=== PATIENT | female | born 1995 | race Caucasian/White ===

== ENCOUNTER 2024-06-15 06:52 | Inpatient (IN) | payer OTHER, SELFPAY ==
[2024-06-15] VITALS (70 sets, daily range): BP systolic 111–163; BP diastolic 45–97; PULSE 67–115; TEMP 36.3–37.3; O2SAT 82–100; BMI 38.2
--- NOTE | 2024-06-15 07:19 | WPDHPUPDATE1 ---
History and Physical Update Update Date/Time: 06/15/24 07:19 29 yo G1 at 40w3d who presents for elective IOL History and Physical has been reviewed, including an updated exam of the patient. There are NO changes in the patient's condition. Risks, benefits, and alternatives have been discussed and questions answered. Patient agrees to proceed with procedure. A/P: routine admission orders Rh+ GBS neg continuous EFM plan for misoprostol IOL
--- NOTE | 2024-06-15 08:01 | LDADM ---
This patient, Aidee Jacobs, was admitted to Labor/Delivery/Recovery 106 on 06/15/24 at 06:52. Plans for labor, pain management and were discussed with patient. Patient/family oriented to hospital policies and general routines including ID bracelet, bed and alarms, visiting hours, pain management, procedures, bathroom and other care routines, personal items, smoking policy, room service/diet and guest tray routines, security routines, and visiting hours. Patient/Family are encouraged to report perceived risks to care and to ask questions if they do not understand what they are told or what they should do. See OBIX for further documentation.
[2024-06-15 08:12] LABS: Basophils Percent Auto 0.3 % (0.2-1.2); Eosinophils Absolute Auto 0.1 K/mm3 (0-0.3); Eosinophils Percent Auto 0.9 % (0-4.4); Hematocrit 34.4 % (37.0-47.0); Hemoglobin 11.5 g/dL (12.0-15.0); Immature Granulocyte Absolute 0.05 K/mm3 (0.00-0.031); Immature Granulocyte Percent A 0.6 % (0-0.5); Lymphocytes Absolute Auto 1.49 K/mm3 (0.9-3.2); Lymphocytes Percent Auto 16.9 % (18.3-44.2); Mean Corpuscular HGB Conc 33.4 g/dl (32-36); Mean Corpuscular Hemoglobin 30.5 pg (26-34); Mean Corpuscular Volume 91.2 fl (80-100); Mean Platelet Volume 10.4 fl (7.4-10.4); Monocytes Absolute Auto 0.6 K/mm3 (0.1-0.6); Monocytes Percent Auto 6.6 % (2.6-8.5); Neutrophils Absolute Auto 6.6 K/mm3 (1.3-6.7); Neutrophils Percent Auto 74.7 % (45.5-73.1); Platelet Count Result 226 k/mm3 (150-375); Red Blood Count 3.77 M/mm3 (4.2-5.4); Red Cell Distribution Width 13.7 % (11.5-14.5); White Blood Count 8.8 K/mm3 (4.5-10.0)
[2024-06-15] MEDS: miSOPROStol 25 MCG TABLET 50 MCG BUCCAL ×2 (08:25→12:41)
--- NOTE | 2024-06-15 08:50 | PCCCNOTE ---
DEVIN Melissa to provide resource.
[2024-06-15 09:13] LABS: HIV 1/2 Ab P24 Ag Result Negative (Negative)
[2024-06-15 09:55] LABS: Rapid Plasma Reagin Non-Reactive (NonReactive)
[2024-06-15] MEDS: miSOPROStol 25 MCG TABLET VAGINAL (17:22)
[2024-06-15] MEDS: fentaNYL CITRATE INJ (*CRX) 100 MCG/2 ML VIAL 50 MCG IV PUSH ×2 (19:53→22:18)
[2024-06-15] MEDS: LACTATED RINGERS 1,000 ML 125 ML IV CONT ×2 (21:51→22:21)
--- NOTE | 2024-06-15 22:15 | WPDANESEPP ---
Anes - Eval Pre Procedure Procedure: Labor Epidural Date/Time: 06/15/24 22:15 Surgeon: Guillermo Preop Diagnosis: Labor Pain Pre Op Diagnosis: IOL Patient Data Age: 29 Gender: F Height: 1.6 m Weight: 98 kg Last Vital Signs Temp 37.3 C 06/15/24 18:00 Pulse 115 H 06/15/24 22:00 BP 153/73 H 06/15/24 22:00 Pulse Ox 100 06/15/24 22:11 O2 Del Method Room Air 06/15/24 07:58 Allergies Allergy/AdvReac Type Severity Reaction Status Date / Time No Known Allergies Allergy Verified 06/11/24 13:28 Home Medications Medication Instructions Recorded Confirmed Type levothyroxine 75 mcg tablet 75 mcg PO DAILY 05/05/24 06/06/24 History vits no.126-ferrous fum 1 tablet PO DAILY 05/05/24 06/06/24 History 28 mg iron-folic acid 800 mcg tablet (Classic ) sertraline 50 mg tablet 50 mg PO DAILY 05/05/24 06/06/24 History Laboratory Tests 06/15/24 07:18 WBC 8.8 K/mm3 (4.5-10.0) RBC 3.77 L M/mm3 (4.2-5.4) Hgb 11.5 L g/dL (12.0-15.0) Hct 34.4 L % (37.0-47.0) MCV 91.2 fl (80-100) MCH 30.5 pg (26-34) MCHC 33.4 g/dl (32-36) RDW 13.7 % (11.5-14.5) Plt Count 226 k/mm3 (150-375) MPV 10.4 fl (7.4-10.4) Immature Gran % (Auto) 0.6 H % (0-0.5) Neut % (Auto) 74.7 H % (45.5-73.1) Lymph % (Auto) 16.9 L % (18.3-44.2) [place] % (Auto) 6.6 % (2.6-8.5) Eos % (Auto) 0.9 % (0-4.4) Baso % (Auto) 0.3 % (0.2-1.2) Lymph # (Auto) 1.49 K/mm3 (0.9-3.2) [place] # (Auto) 0.6 K/mm3 (0.1-0.6) Eos # (Auto) 0.1 K/mm3 (0-0.3) Baso # (Auto) 0.0 K/mm3 (0.0-0.1) Abs Immat Gran (auto) 0.05 H K/mm3 (0.00-0.031) Absolute Neuts (auto) 6.6 K/mm3 (1.3-6.7) Absolute Nucleated RBC 0.000 K/mm3 (0.0-0.012) Nucleated RBC % 0.0 % (0.0-0.2) RPR Non-reactive (NonReactive) HIV 1&2 Ab/P24 Ag 4thGn Negative (Negative) Blood Type A Positive Antibody Screen Negative : gestational age (, GAETANO 06/17/24) Patient hx anesthesia problems: none Family hx anesthesia problems: none Results Review: All pre-operative results and documents have been reviewed as part of the pre-operative evaluation. [facility] Past Medical History Medical History Allergies Anemia Anxiety IBS (irritable bowel syndrome) Thyroid disease Family History Family History Father Diabetes mellitus Asthma Grandparent Diabetes mellitus Social History Social History Smoking status: Never smoker Alcohol intake: never Substance use: never Substance use type: marijuana Do You Feel Safe in your Home?: Yes Lack of Transportation: No Lack of Food: Never True Current Housing: I Have Housing Concerned About Future Housing: No Difficulty Paying Gas/Electric Bills: No Difficulty Paying for Meds: No Currently Unemployed: No Education: High School Diploma/GED Difficulty w/ Childcare or Family Care: No Living arrangements: with family Occupation/Education: occupation Gender identity (if verbalized by the patient): Female Sexual Orientation (if Verbalized by the Patient): Bisexual Spiritual care concerns: No Exam Day of Procedure 06/15/24 22:15 Patient weight: obese Heart: regular rate and rhythm Lungs: clear to auscultation Airway: Mallampati scale class II Neurological: alert and oriented
[2024-06-16] VITALS (116 sets, daily range): BP systolic 95–159; BP diastolic 40–109; PULSE 65–142; RESP 18–20; TEMP 36.6–37.7; O2SAT 83–100
[2024-06-16] MEDS: OXYTOCIN 30 UNITS/NS 500 ML 30 UNITS/500 ML BAG 6 UNITS IV CONT (00:10)
[2024-06-16] MEDS: LACTATED RINGERS 1,000 ML 125 ML IV CONT (02:33)
--- NOTE | 2024-06-16 05:18 | PM.OBPRVD ---
OB - Vaginal Delivery Note Procedure Delivery date: 06/16/24 Induction method: Per Misoprostol Protocol Delivery augmentation: Pitocin Delivery monitor: External FHT and Internal Uterine Route of delivery: Episiotomy description: None Laceration Description: Vaginal (vilateral) Delivery repair: vicryl Specimen: No Quantitative Blood Loss (ml): 150 Anesthesia type: Epidural Disposition: Floor Complications: No immediate complications Narrative: Patient pushed for a spontaneous vaginal delivery. The fetus was delivered atraumatically and placed on the maternal abdomen. The cord was clamped and cut after 1 minute of life. The cord was double clamped and cut and a segment of cord was collected for cord gases. Cord blood was collected for blood type and Coomb's testing. The placenta delivered spontaneously and was noted to be intact. The perineum was inspected and noted to be intact. There were superficial bilateral vaginal lacerations. The lacerations were made hemostatic with 3-0 vicryl in a running fashion. The uterus was firm and good hemostasis was noted. Baby Date of : 06/16/24 Time of : 04:59 Gestational Age by Date: 40 Infant gender: Female presentation: vertex position: Right Occiput Anterior Placenta delivery description: Spontaneous Cord Vessel Description: 3 Vessels score one minute: 9 score five minutes: 9
[2024-06-16] MEDS: OXYTOCIN 30 UNITS/NS 500 ML 30 UNITS/500 ML BAG 125 UNITS IV CONT (05:35)
[2024-06-16] MEDS: LEVOTHYROXINE SODIUM 75 MCG TABLET PO (06:46)
[2024-06-16] MEDS: WITCH HAZEL 40 PADS 1 PAD TOPICAL (06:47)
[2024-06-16] MEDS: BENZOCAINE 20% AER SPR (*SP) 56 GM CAN 1 SPRAY TOPICAL (06:47)
[2024-06-16] MEDS: IBUPROFEN 600 MG TABLET PO ×3 (06:52→23:59)
[2024-06-16] MEDS: DOCUSATE SODIUM 100 MG CAPSULE PO ×2 (07:14→17:07)
[2024-06-16] MEDS: SERTRALINE HCL 50 MG TABLET PO (07:14)
[2024-06-16] MEDS: MULTIVIT/MIN/PREN/FOL AC/IRON TABLET 1 TAB PO (07:14)
--- NOTE | 2024-06-16 09:59 | OBPPTRN ---
Patient transferred to post room #285 via (wheelchair). Support person present. Oriented to unit, room, information board, rooming in, admission packet and security measures. Patient verbalizes understanding.
--- NOTE | 2024-06-16 10:40 | PC.NURSE ---
0968- To patient room to assist with . Baby is laying in the crib and we unwrapped and changed her diaper to waken her. Mom was already in a semi reclined position so we attempted a laid back feed, but ended up placing baby in football hold. Baby latched and sucked 3 times before stopping and refusing to suck more. We tried to relatch and get baby feeding but were unable. Encouraged mom to take a break and try again soon or when she observes feeding cues. Mom agrees to this plan. Reported to primary RN. 1040- Assisted mother to wake and latch infant to the [left] breast in [football] position. Infant [was] able to maintain an appropriate latch. She would suckle off and on in short bursts. Mother [declines] nipple pain. Encouraged mother to keep infant awake and nursing, but baby became sleepy again quickly. Mother taught to hand express some drops of colostrum and baby eagerly lapped them from the breast and latched, but then would not suck. Reviewed using the blue feeding sheet to record time and duration of feeding. admission folder given. Mother voiced understanding of the education shared, to call for assistance if the infant does not latch or if there is discomfort with . name/number on communication board. Reported to the Primary RN.?
[2024-06-16] MEDS: DIBUCAINE 1% OINTMENT 30 GM TUBE 1 APPLIC TOPICAL (14:24)
--- NOTE | 2024-06-16 17:00 | PC.NURSE ---
Patient received a [employer] insurance pump. Reviewed flange sizing and encouraged mom to let us know if she is going to pump before she goes home so we can assist with set up and use. She has visitors now but will call for assistance as needed. Reported to primary RN.
[2024-06-16] MEDS: ACETAMINOPHEN 325 MG TABLET 650 MG PO (17:06)
[2024-06-17] VITALS: BP 112/64; PULSE 76; RESP 16; TEMP 37.1; O2SAT 95
[2024-06-17 01:39] VITALS: BP 127/69; PULSE 74; TEMP 36.7; O2SAT 99
[2024-06-17 05:44] LABS: Hematocrit 28.7 % (37.0-47.0); Hemoglobin 9.4 g/dL (12.0-15.0)
[2024-06-17] MEDS: LEVOTHYROXINE SODIUM 75 MCG TABLET PO (06:38)
[2024-06-17 08:00] VITALS: BP 134/62; PULSE 75; RESP 16; TEMP 36.6; O2SAT 100
--- NOTE | 2024-06-17 08:00 | PC.NURSE ---
Introductions were made,communication board updated with name and contact information then consulted with patient to assess needs related to . Mother led the conversation with her?plans to feed?her and the?experience so far. Mother intends to primarily pump and feed . Mother states that she is more comfortable with pumping and feeding but will attempt to place to breast at times. Mother denies any further education related to pumping and feeding. Reported to the Primary RN.
[2024-06-17] MEDS: IBUPROFEN 600 MG TABLET PO ×2 (08:06→17:17)
--- NOTE | 2024-06-17 09:19 | P.PNOB_ITS ---
OB - PN: Subj Subjective Date/time seen: 06/17/24 09:19 Patient comments: no complaints, pain well controlled and tolerating diet [place] feeding status: exclusively breast feeding Narrative: patient doing well this AM. No complaints. Pain is well controlled. She reports minimal bleeding. She is ambulating and voiding without difficulty. She is tolerating PO. She denies N/V, fever, chills. OB - PN: Obj Data Labs 06/17/24 04:51 Labs: Laboratory Results - last 24 hr 06/17/24 04:51 Hgb 9.4 L Hct 28.7 L OB - PN A/P Plan day: 1 Plan: routine care Comments: patient doing well H/H VSS will continue iron supplementation continue routine care Time Spent With Patient Time: Total time spent is greater than 50% in coordination of care (as documented) at patient's floor/unit and/or counseling patient: Time with patient: less than 15 minutes Review of Systems Review of Systems: All systems reviewed & are unremarkable except as noted in HPI and below Exam Const: General: comfortable and no acute distress Resp: Effort & Inspection: normal respiratory effort Cardio: Rate: regular rate GI: GI Palp: Yes Soft to palpation and No Tenderness to palpation present (GI) Auscultation: normal bowel sounds Other: fundus firm and below umbilicus. Psych: Affect: normal affect
[2024-06-17] MEDS: SERTRALINE HCL 50 MG TABLET PO (09:21)
[2024-06-17] MEDS: DOCUSATE SODIUM 100 MG CAPSULE PO ×2 (09:21→16:39)
[2024-06-17] MEDS: MULTIVIT/MIN/PREN/FOL AC/IRON TABLET 1 TAB PO (12:27)
[2024-06-17] MEDS: POLYSACCHARIDE IRON COMPLEX 150 MG CAPSULE PO ×2 (12:27→16:39)
--- NOTE | 2024-06-17 15:26 | WPDANLDPN2 ---
Anes-Prog Note L&D Date/Time: 06/17/24 15:26 Comfortable throughout: labor and delivery Neuraxial method: epidural Epidural/Spinal procedure site: clean & non-tender Neuro status: Neuro function grossly intact. Cardiovascular status: normal Respiratory status: normal Airway patency: baseline Mental status: baseline Post-Op hydration status: normal Vital Signs: Last Vital Signs Temp 36.6 C 06/17/24 08:00 Pulse 75 06/17/24 08:00 Resp 16 06/17/24 08:00 BP 134/62 06/17/24 08:00 Pulse Ox 100 06/17/24 08:00 O2 Del Method Room Air 06/17/24 08:30 Pain score (VAS): 0 Post-procedural complaints: none Patient feedback: Patient satisfied with anesthetic care.
[2024-06-17] MEDS: ACETAMINOPHEN 325 MG TABLET 650 MG PO (21:20)
[2024-06-18] VITALS: BP 112/64; PULSE 76; RESP 16; TEMP 37.1; O2SAT 95
[2024-06-18] MEDS: IBUPROFEN 600 MG TABLET PO ×2 (04:28→10:36)
[2024-06-18] MEDS: WITCH HAZEL 40 PADS 1 PAD TOPICAL (04:29)
[2024-06-18] MEDS: TETANUS,DIPHTHERIA,AC PERTUSSIS ADULT (0.5 ML) BOOSTRIX IM (07:56)
[2024-06-18] MEDS: LEVOTHYROXINE SODIUM 75 MCG TABLET PO (07:56)
[2024-06-18 08:00] VITALS: BP 133/84; PULSE 79; RESP 14; TEMP 36.4; O2SAT 99
--- NOTE | 2024-06-18 08:22 | PM.OBDSVD ---
DS: Admitting Diagnosis Discharge Date 06/18/24 Admitting Diagnosis intrauterine at term DS: Discharge Diagnosis Discharge Diagnosis (1) Normal vaginal delivery: Code(s): O80 - Encounter for full-term uncomplicated delivery Status: Acute OB - DS: Summary OB Procedures : None OB Procedures Intrapartum: Spontaneous Vag Delivery OB Procedures: : None Peripartum Data Laceration Description: Vaginal (vilateral) Episiotomy description: None Status at Discharge Functional status at discharge: independent ambulation Overall status at discharge: patient is back to baseline Time Spent with Patient Time attestation: Total time spent providing and/or coordinating discharge services: Time spent: Less than 30 minutes Exam Const: General: comfortable and no acute distress Resp: Effort & Inspection: normal respiratory effort Auscultation: clear to auscultation bilaterally Cardio: Rate: regular rate GI: GI Palp: Yes Soft to palpation Auscultation: normal bowel sounds Other: Fundus firm below umbilicus Psych: Appearance: grossly normal Mental Status: mental status grossly normal Affect: normal affect Discharge Plan Discharge Discharging Clinician: Dario Li Patient Disposition: Home, Self-Care Activity: as tolerated and pelvic rest Diet: regular Patient Instructions: Antibiotic Form, Vaginal Delivery (DC) Stand Alone Forms: General Discharge Information Follow-up/Referrals: Dario Li MD [Physician] - 4 Weeks Discharge Medications: New ibuprofen 600 mg tablet 600 mg PO Q6H PRN (Reason: pain) Qty: 30 0RF acetaminophen 500 mg tablet 500 mg PO Q6H PRN (Reason: pain) Qty: 30 0RF ferrous sulfate 325 mg (65 mg iron) tablet 325 mg PO DAILY Qty: 30 0RF Continued levothyroxine 75 mcg tablet 75 mcg PO DAILY sertraline 50 mg tablet 50 mg PO DAILY Classic 28 mg iron- 800 mcg tablet 1 tablet PO DAILY Date of admission: 06/15/24 06:52 Primary Care Provider: UNKNOWN,DOCTOR Admitting Provider: Dario Li Attending physician on admission: Dario Li Condition: Stable
[2024-06-18] MEDS: SERTRALINE HCL 50 MG TABLET PO (08:44)
[2024-06-18] MEDS: POLYSACCHARIDE IRON COMPLEX 150 MG CAPSULE PO (08:44)
[2024-06-18] MEDS: MEASLES,MUMPS,RUBELLA VACCINE 0.5 ML VIAL SUB-Q (08:45)
[2024-06-18] MEDS: DOCUSATE SODIUM 100 MG CAPSULE PO (08:45)
[2024-06-18] MEDS: MULTIVIT/MIN/PREN/FOL AC/IRON TABLET 1 TAB PO (08:45)
--- NOTE | 2024-06-18 09:00 | PC.NURSE ---
Met with patient to assess and discuss needs related to infant feeding. Mother states it is her intention to [mostly pump and bottle feed]. Encouraged mother to be consistent with pumping, even if she isn't getting large volumes. Educated on milk production and normal expectations. Mother is supplementing with formula at most feedings. She states that baby was struggling to latch and she didn't feel like she was 'getting anything' at the breast. Parents had just completed a feeding of 30ml of formula. Discussed signs that is effectively feeding, i.e. sufficient voids and stools, jaundice within normal limits, <10% weight loss from . Mother educated on milk production, supply and demand, and expectations for in the immediate period. Mother instructed to call for assistance if will not feed every 3 hours, if there is discomfort with , or if mother has any other questions or concerns. resources provided including the Mom and Baby Guide and name/number on communication board. Mother verbalized understanding. Updated patient?s primary RN with education provided.??
--- NOTE | 2024-06-18 10:15 | PC.NURSE ---
On 06/18/24, the student, Mimi Zayas, provided care and completed [facility] documentation on this patient. I have reviewed the student's documentation and agree with the findings.
--- NOTE | 2024-06-18 10:40 | PC.NURSE ---
Patient viewed the discharge video Mother & Baby Care, The First Two Weeks . Patient was given the opportunity and encouraged to ask questions. Patient verbalized understanding of information shared and has been given the mother/baby guide for home reference.
--- NOTE | 2024-06-18 12:45 | PC.NURSE ---
Mother is feeding appropriately for growth of and understands stimulating infant to eat if needed, offering the breast sometimes, and bottle feeding pumped milk and formula. has had appropriate feedings in the last 24 hours meets the outcomes for weight, output, blood sugar and jaundice at this time. Reinforced understanding of milk production, transition of milk, signs of adequate intake, transition of stool, prevention/relief of engorgement, plugged ducts, mastitis, responsive watching for feeding cues, the different methods of stimulating infant to breastfeed 1-3 hours after the start of the last feeding, community resources, and when to call a provider using the resource of the feeding sheet along with the mom and baby guide. Mother voiced understanding of the information shared, is confident to continue effectively her at home, when to call for assistance, denies any additional assistance or education at this time. Reported to the Primary RN.
[2024-06-19 10:37] VITALS: BP 140/80; PULSE 86; RESP 16; TEMP 36.5; O2SAT 99
== END 2024-06-18 17:20 | disposition home or self-care (01) | DRG 807 ==
LOC: ANHLDR 06:55 → ANHOB2 06-16 08:29
PROVIDERS: Admitting Provider Student in an Organized Health Care Education/Training Program; Visit Provider Student in an Organized Health Care Education/Training Program
DX: O71.4 Obstetric high vaginal laceration alone (principal); Z37.0 Single live birth; Z3A.40 40 weeks gestation of pregnancy
CPT/HCPCS: 36415; 85014; 85018; 85025; 86592; 86703; 86850; 86900; 86901; 90710; 90715; A9270; G0432; J2590; J2795; J3010; J7120

== ENCOUNTER 2024-10-30 08:37 | Outpatient (CLI) | payer BC, SELFPAY ==
--- OUTSIDE RECORDS SUMMARY | 2024-10-30 08:52 | XMS_ITS | Clinical Summary ---
Author Organization [facility] Address [address] [place] [address] Care Team Providers Care Electrician Elevator Maintenance Name Role Phone Tino Herzog MD Primary Care Provider [phone] Clara Rios SENIOR INVESTMENT ANALYST-PEOPLESOFT CONSULTANT Unavailable [phone] Carmen Medina SENIOR INVESTMENT ANALYST-PEOPLESOFT CONSULTANT Unavailable [phone] Source Comments [facility],non-owned Affiliates and Associated Physician Practices is amultiple site organization consisting of ambulatory clinics and hospital sitesin [place], [place], [place] and [place]. This disclosure is being madepursuant to the Care Everywhere program and may not contain all information available regarding this patient. Last updated 18.[facility] Allergies No known active allergies Medications * Be aware that medications may not be up to date on this document. Alwaysverify current medications with the patient. mupirocin (Bactroban) 2 % ointment Apply to affected area 3 times daily 22 g 05/02/2023 Active Vit-Fe Fumarate-FA (SM Vitamins) 28-0.8 MG TABS Take 1 tablet by mouth once daily 90 tablet 3 10/12/2023 Active Active Problems Problem Noted Date Diagnosed Date Gastroesophageal reflux dise ase with esophagitis without hemorrhage 06/20/2023 Resolved Problems Problem Noted Date Diagnosed Date Resolved Date Cellulitis and abscess of leg 01/15/2011 10/09/2012 MRSA (methicillin resistant Staphylococcus aureus) infection 01/15/2011 05/12/2013 Overview (01/17/2011): abscess Disorder of refraction and accommodation 01/14/2010 05/12/2013 Overview (04/15/2015): Speech articulation disorder 01/14/2010 05/12/2013 Immunizations Immunization Administration Dates Next Due DTaP VACCINE IM (6wk-6yrs) 11/02/1997,,1996,07/29 HEP A PEDS 2 DOSE 03/25/2010 HEP B VACCINE, PED/ADOL 11/02/1997,02/03,1996,04/03 HIB BOOSTER 11/02/1997, 7,1996,07/29 Human Papilloma Virus Dagmar valent Vaccine 10/09/2012,03/25/2010 MENINGOCOCCAL ACWY (MCV4P) VAC IM 03/25/2010 MMR 11/02/1997 POLIO IPV 1996,1996,1996 TDAP (7yrs+) 03/25/2010 VARICELLA 11/02/1997 Family History Medical History Relation Name Comments Asthma Father Diabetes Father Hypertension Father Migraine Father Rashes/Skin Problems Father Hypertension Paternal Aunt Seizures Paternal Aunt Cancer Paternal Grandfather Diabetes Paternal Grandfather Heart Failure Paternal Grandfather Hypertension Paternal Grandfather Migraine Paternal Grandfather Cancer Paternal Grandmother Diabetes Paternal Grandmother Hypertension Paternal Grandmother Migraine Paternal Grandmother Hypertension Paternal Uncle Asthma Sister Relation Name Status Comments Father Paternal Aunt Paternal Grandfather Paternal Grandmother Paternal Uncle Sister Social History Tobacco Use Types Packs/Day Years Used Date Smoking Tobacco: Never Smokeless Tobacco: Never Alcohol Use Standard Drinks/Week Comments No 0 (1 standard drink = 0.6 oz pur e alcohol) PHQ-2 Answer Date Recorded Patient Health Questionnaire-2 Score 1 10/12/2023 Comments No Sex and Gender Information Value Date Recorded Sex Assigned at Female 05/01/2023 6:03 PM CDT Legal Sex Female 8:57 AM PHARMACY RESOURCE TECH Gender Identity Female 05/01/2023 6:03 PM CDT Sexual Orientation Not on file Last Filed Vital Signs Vital Sign Reading Time Taken Comments Blood Pressure 98/70 10/12/2023 11:06 AM CDT Pulse 100 10/12/2023 11:06 AM CDT Temperature 36.8 C (98.2 F) 10/12/2023 11:06 AM CDT Respiratory Rate 18 10/12/2023 11:06 AM CDT Oxygen Saturation 100% 10/12/2023 11:06 AM CDT Inhaled Oxygen Concentration - - Weight 83 kg (183 lb) 10/12/2023 11:06 AM CDT Height 160 cm (5' 3 ) 10/12/2023 11:06 AM CDT Body Mass Index 32.42 10/12/2023 11:06 AM CDT Plan of Treatment Health Maintenance Due Date Last Done Comments PAP SMEAR 1996 HIV SCREENING 2011 HEPATITIS C SCREENING 03/29/2014 DTAP/TDAP/TD VACCINES (6 - Td or Tdap) 03/25/2020 03/25/2010, 11/02/1997, 1996, Additional history exists COVID-19 VACCINE ( season) 2024 06/22/2021, 05/25/2021 DEPRESSION SCREENING 07/16/2024 10/12/2023, 04/20/20 23 INFLUENZA VACCINE (Season Ended) 2025 05/04/2021 ZOSTER VACCINE (1 of 2) 2046 HEPATITIS B VACCINE Completed 11/02/1997, 02/03/1997, 1996, Additional history exists HIB VACCINE Completed 11/02/1997, 11/13, 1996, Additional history exists MENINGOCOCCAL GROUPS A/C/Y/W VACCINE Aged Out 03/25/2010 No longer eligible based on patient's age to complete this topic HPV VACCINE Completed 10/09/2012, 03/25/2010 MENINGOCOCCAL (Group B) VACCINE SHARED DECISION-MAKING Aged Out No longer eligible based on patient's age to complete this topic PNEUMOCOCCAL VACCINE Aged Out No long er eligible based on patient's age to complete this topic Additional Health Concerns Infection Onset Date Last Indicated MRSA 01/17/2011 01/17/2011 Insurance [facility] [place] * Guarantor: MIKI YOUNGBLOOD L Account Type Relation to Patient Date of Phone Billing Address Personal/Family 1995 [address] [place] [place] [address] Care Teams Electrician Elevator Maintenance Relationship Specialty Start Date End Date Tino Herzog MD PCP - General Family Medicine 04/20/23 Clara Rios, SENIOR INVESTMENT ANALYST-PEOPLESOFT CONSULTANT [address] [place] [address] [place] [id number] Nurse Practitioner Nurse Practitioner 04/20/23 Carmen Medina APRN-PEOPLESOFT CONSULTANT [address] [place] [address] [place] [phone] Nurse Practitioner Family Medicine 06/20/23
[2024-10-30 09:41] LABS: Beta HCG Quantitative 377.62 mIU/ML
== END 2024-10-30 08:38 | disposition home or self-care (01) ==
LOC: ANHLAB 08:38
PROVIDERS: PCP Student in an Organized Health Care Education/Training Program; Visit Provider Student in an Organized Health Care Education/Training Program
DX: N94.89 Other specified conditions associated with female genital organs and menstrual cycle (principal); E03.9 Hypothyroidism, unspecified
CPT/HCPCS: 36415; 84443; 84702

== ENCOUNTER 2024-11-01 09:03 | Outpatient (CLI) | payer BC, SELFPAY ==
--- OUTSIDE RECORDS SUMMARY | 2024-11-01 09:05 | XMS_ITS ---
Author Organization Unknown Plan of Treatment Patient Care team information Name Category Status Period Participants - - Proposed period not known -
--- OUTSIDE RECORDS SUMMARY | 2024-11-01 09:05 | XMS_ITS | Data Portability ---
Author Organization [employer] , [facility] Address [address] [place] [address] Assessment No assessment recorded. Plan of Treatment Reminders Order Date Submit Date Provider Last Modified By Organization Details Last Modified Time Details Appointments None recorded. Lab abo group + rh type, blood 2023 [facility], [address] [place], [address], 4 18:44:40 glucose tolerance test, post-50G, 1-hour 2023 024 [employer], [address] [place], [address], 4 10:59:57 CBC w/ auto diff 2023 024 [employer], [address] [place], [address], 4 11:00:30 obstetric screen, serum or blood 2023 024 [employer], [address] [place], [address], 4 11:31:28 TSH, serum or plasma 2023 024 [employer] [facility], [address] [place], [address], 4 13:35:09 Referral None recorded. Procedures None recorded. Surgeries None recorded. Imaging US, obstetric, follow-up 2023 024 [email or web address] Not available 17:23:53 US, breast, unilateral - pt is , is having pain. 2023 [email or web address] [facility], [address] [facility], [address], [address], 15:40:11 US, obstetric, follow-up 2023 024 PIERCE Not available 17:40:35 US, obstetric, limited 2023 024 [email or web address] Not available 17:13:53 Medication Orders None recorded. Patient TargetsNo targets recorded. Patient Instructions Encounter Date Encounter Id Patient Instructions Last Modified By Organization Details Last Modified Time 03/28/2024 [id number] learning about screening for gestational diabetes [email or web address] Not available 03/28/2024 12:43:41 Reason for Referral None Reported. Results Created Date Observation Date Name Description Value Unit Range Abnormal Flag Note LastModifiedBy Organization Detail LastModifiedTime 03/01/2003/01/2024 TSH W/REF STEPHANIE TO FT4 TSH w/reflex to FT4 1.23 mIU/L normal Refer ence Range > or = 20 Years 0.40- 4.50 Pregn ry Range s First trime ster 0.26- 2.66 Secon d trime ster 0.55- 2.73 Third trime ster 0.43- 2.91 NO COLLE CTION DATE RECEI VIGNESH. WE HAVE USED THE DATE THE SPECI MEN WAS RECEI VIGNESH BY THIS LABOR ATORY THE COLLE CTION DATE. IF THIS IS INCOR RECT, PLEAS E CONTA CT CLIEN T SERVI STEVIE. PHONE NUMBE R: [phone] Not Available [employer] [facility] [address], [place], [address], 03/01/2024 13:35:09 03/31/20 24 04/01/2024 (50G) 1HR - GLUCO SE MARLON ANCE TEST, GESTA DRAGAN PEREZ N glucose (50g) 1 hour 103 mg/dL <135 normal Not Available [employer] [address], [address], 04/01/2024 10:59:57 03/31/20 24 04/01/2024 CBC (INCL UDES DIFF/ PLT) WBC 9.3 thous and/u L 4.0 - 9.8 normal Not Available [address], [address], 04/01/2024 11:00:29 03/31/20 24 04/01/2024 CBC (INCL UDES DIFF/ PLT) RBC 3.7 mary on/uL 3.9 - 4.9 low Not Available [address], [address], 04/01/2024 11:00:29 03/31/20 24 04/01/2024 CBC (INCL UDES DIFF/ PLT) hemoglobin 11.2 g/dL 11.8 - 14.8 low Not Available [address], [address], 04/01/2024 11:00:29 03/31/20 24 04/01/2024 CBC (INCL UDES DIFF/ PLT) hematocrit 33.7 % 35.5 - 44.0 low Not Available [address], [address], 04/01/2024 11:00:29 03/31/20 24 04/01/2024 CBC (INCL UDES DIFF/ PLT) MCV 90.6 fL 82.0 - 99.0 normal Not Available [address], [address], 04/01/2024 11:00:29 03/31/20 24 04/01/2024 CBC (INCL UDES DIFF/ PLT) MCH 30.1 pg 27.2 - 32.6 normal Not Available [address], [address], 04/01/2024 11:00:29 03/31/20 24 04/01/2024 CBC (INCL UDES DIFF/ PLT) MCHC 33.2 g/dL 31.5 - 35.5 normal Not Available [address], [address], 04/01/2024 11:00:03/31/20 24 04/01/2024 CBC (INCL UDES DIFF/ PLT) RDW-CV 12.9 % 11.5 - 14.5 normal Not Available [address], [address], 04/01/2024 11:00:29 03/31/20 24 04/01/2024 CBC (INCL UDES DIFF/ PLT) platelet 258 thous and/u L 140 - 350 normal Not Available [address], [address], 04/01/2024 11:00:29 03/31/20 24 04/01/2024 CBC (INCL UDES DIFF/ PLT) MPV 10.2 fL 9.3 - 12.4 normal Not Available [address], [address], 04/01/2024 11:00:29 03/31/20 24 04/01/2024 CBC (INCL UDES DIFF/ PLT) absolute neutrophil 7.02 thous and/u L 1.90 - 7.00 high Not Available [address], [address], 04/01/2024 11:00:29 03/31/20 24 04/01/2024 CBC (INCL UDES DIFF/ PLT) absolute lymphocyte 1.43 thous and/u L 0.70 - 4.50 normal Not Available [address], [address], 04/01/2024 11:00:29 03/31/20 24 04/01/2024 CBC (INCL UDES DIFF/ PLT) absolute monocyte 0.53 thous and/u L 0.10 - 1.30 normal Not Available [address], [address], 04/01/2024 11:00:29 03/31/20 24 04/01/2024 CBC (INCL UDES DIFF/ PLT) absolute eosinophil 0.22 thous and/u L <0.70 normal Not Available [address], [address], 04/01/2024 11:00:29 03/31/20 24 04/01/2024 CBC (INCL UDES DIFF/ PLT) absolute basophil 0.04 thous and/u L <0.20 normal Not Available [address], [address], 04/01/2024 11:00:29 03/31/20 24 04/01/2024 CBC (INCL UDES DIFF/ PLT) absolute immature granulocyte 0.06 thous and/u L <0.03 high Not Available [address], [address], 04/01/2024 11:00:29 03/31/20 24 04/01/2024 OB 28W (SYPH HIV 1/2 Ag/Ab Non-Re active non-re active normal Not Available [address], [address], 04/01/2024 11:31:28 03/31/20 24 04/01/2024 OB 28W (SYPH syphilis Ab Non-Re active non-re active normal Not Available [address], [address], 04/01/2024 11:31:28 03/01/20 24 02/29/2024 , sendy kerr w-up No observ ation record ed. [email or web address] [address], [place], [address], 03/03/2024 09:46:52 04/25/20 24 04/25/2024 US, obste tric, follo w-up No observ ation record ed. [email or web address] [address], [place], [address], 04/25/2024 11:41:39 Result Notes None recorded. Problems Name Problem SNOMED Code Status Onset Date Resolution Date Notes Provider Name and Address Organization Details Recorded Time 82489711 Active 2023 Swapna Null null, [place] - [facility] 4 23:12:03 Rubella non-immune 935845245 Active MICHELLE MATOS, DO [address] [place] [address], [address], [facility] - [facility] 4 18:54:05 Measles non-immune 103102687 Active MICHELLE MATOS, DO [address] [place] [address], [address], [facility] - [facility] 4 18:54:13 Attention deficit hyperactiv ity disorder 676448230 Active MICHELLE MATOS, DO [address] [place] [address], [address], [facility] - [facility] 4 18:54:23 Depressive disorder 24425877 Active no meds, counselor MICHELLE MATOS, DO [address] [place] [address], [address], [facility] - [facility] 4 18:54:58 Hypothyroi dism 47646979 Active TSH (01/03): 2.73, check again at 28w MICHELLE MATOS, DO [address] [place] [address], [address], [facility] - [facility] 4 18:55:48 Problem Notes None recorded. Procedures Surgical History Date Name Laterality Status Provider Name and Address Organization Details Recorded Time 07/16/2020 Date of Last Pap Smear completed Emma Ahuja [place] - [facility] 12/07/2023 09:48:57 Imaging Results Imaging Date Name Status LastModified by Organiz ation Details LastModified Time 02/29/2024 US, obstetric, follow-up completed louis [address], [place], [address], 03/03/2024 09:46:52 04/25/2024 US, obstetric, follow-up completed [email or web address] [address], [place], [address], 04/25/2024 11:41:39 Procedure Notes None recorded. Medical Equipment None Reported. Allergies Allergen ID Allergen Name Allergen Category Reaction Reaction Severity Criticality Documentation Date Start Date Code Code System Note Provider Name and Address Organization Details Recorded Time 613278 house dust allergeni c extract environme nt,medica tion Not available Not available Not available 10/22/2023 48203 9 RxNorm Not Available Not Available Not Available 519898 cow milk allergeni c extract food,medi cation Not available Not available Not available 10/22/2023 32857 5 RxNorm Not Available Not Available Not Available Medications Name Sig Start Date Stop Date Status Note LastModified by Organization Details LastModified Time levothyroxine 75 mcg tablet TAKE 1 TABLET BY MOUTH EVERY DAY 04/11 completed Not Available Not Available Not Available levothyroxine 50 mcg tablet TAKE 1 TABLET BY MOUTH ONCE DAILY 02/28 completed Not Available Not Available Not Available pantoprazole 40 mg tablet,delaye d release TAKE 1 TABLET BY MOUTH ONCE DAILY 10/21 completed Not Available Not Available Not Available mupirocin 2 % topical ointment 10/21 completed Not Available Not Available Not Available sertraline 50 mg tablet Take 1 tablet by mouth once daily active Not Available Not Available No t Available Augmentin 500 mg-125 mg tablet Take 1 tablet 3 times a day by oral route for 7 days. 11/08 completed Not Available Not Available Not Available Vitamin D active Not Available Not Tg ilable Not Available 28 mg iron-800 mcg tablet TAKE 1 TABLET BY MOUTH ONCE DAILY active Not Available Not Available No t Available Vitals Date Recorded Body height Provider Name an d Address Organization Details Last Updated DateTime 02/29/2024 160.02 cm Malu Culpa [facility] 02/29/2024 14:31:37 Date Recorded Body mass index (BMI) Body weight Systolic blood pressure Diastolic blood pressure Provider Name and Address Organization Details Last Updated DateTime 02/29/2024 34.6 kg/m2 67118.23 g 120 mm[Hg] 74 mm[Hg] Ayala Rivers [facility] 02/29/2024 15:26:15 Date Recorded Body height Body mass index (BMI) Body weight Body temperature Systolic blood pressure Diastolic blood pressure Provider Name and Address Organization Details Last Updated DateTime 160.02 cm 35.6 kg/m2 78709.3 5 g 98.3 [degF] 118 mm[Hg] 68 mm[Hg] Cathleen Gifford [facility] 11:31:51 Date Recorded Body weight Body mass index (BMI) Body height Systolic blood pressure Diastolic blood pressure Provider Name and Address Organization Details Last Updated DateTime 04/11/2024 54117.8 4348 g 36.1 kg/m2 160.02 cm 124 mm[Hg] 80 mm[Hg] Kristina Chan [facility] 16:46:02 Date Recorded Body height Body mass index (BMI) Systolic blood pressure Diastolic blood pressure Provider Name and Address Organization Details Last Updated DateTime 04/18/2024 160.02 cm 36 kg/m2 112 mm[Hg] 72 mm[Hg] Shauna Peguero [facility] 04/18/2024 15:38:36 Date Recorded Body weight Provider Name an d Address Organization Details Last Updated DateTime 04/18/2024 20911.45470 g Xena Sarah MD [address] [facility], [place], [address], [facility] 04/18/2024 16:05:36 Date Recorded Body height Body mass index (BMI) Body weight Systolic blood pressure Diastolic blood pressure Provider Name and Address Organization Details Last Updated DateTime 04/25/2024 160.02 cm 36.4 kg/m2 05982.87 g 110 mm[Hg] 50 mm[Hg] Emery George [facility] 11:21:01 Social History Question Answer Notes LastModified by Organizat ion Details LastModified Time Tobacco Smoking Status Never Smoker Ayala luna[place] [facility] 10/22/2023 17:01:54 Are You Blind Or Do You Have Difficulty Seeing? Yes Information not available 10/22/2023 Are You Currently Employed? Yes Information not available 10/22/2023 Are You Deaf Or Do You Have Serious Difficulty Hearing? Yes Information not available 10/22/2023 What Type Of Diet Are You Following? REGULAR Information not available 10/22/2023 Which Illicit Or Recreational Drugs Have You Used? CBD And THC Before Information not available 10/22/2023 How Many Children Do You Have? 0 Information not available 10/22/2023 Are There Any Occupational Health Risks Where You Work? Yes Information not available 10/22/2023 What Is Your Relationship Status? Single Information not available 12/07/2023 Are You Sexually Active? Yes Information not available 10/22/2023 What Types Of Sporting Activities Do You Participate In? Walks, Small Hikes In Warmer Weather, Swimming In Warm Weather. Information not available 10/22/2023 Do You Use Any Illicit Or Recreational Drugs? Yes Information not available 10/22/2023 Have You Used IV Drugs? No [email or web address] Information not available 04/11/2024 Do You Or Have You Ever Used Any Other Forms Of Tobacco Or Nicotine? No Information not available 12/07/2023 Sex: Female Functional Status Question Answer Note LastModified by Organizat ion Details LastModified Time What is your exercise level? Occasional Information not available 10/22/2023 Mental Status None recorded. Family History Relationship Description Onset Age of this Age Resolved Age Notes LastModified by Organization Details LastModified Time Unspecified Relation Irritable bowel syndrome [email or web address] Not available 2023 17:01:53 Unspecified Relation Hypercholest erolemia [email or web address] Not available 2023 17:01:53 Unspecified Relation Diabetes mellitus [email or web address] Not available 2023 17:01:53 Paternal Grandfather Malignant neoplastic disease [email or web address] Not available 2023 17:01:53 Father Hypercholest erolemia kbritsch Not available 2023 17:01:53 Father Diabetes mellitus [email or web address] Not available 2023 17:01:53 Medical History Condition Response ADD/ADHD Y Eating Disorder Y IBS (Irritable Bowel Syndrome) Y Depression Y Hypothyroidism Y Seasonal allergies Y Gynecological History Statement/Question Response Flow Moderate Date of LMP 09/05/2023 HPV Vaccine N Duration of Flow (days) 4 to 5 Most Recent Mammogram Current Control Method Age at Menarche 12 Date of Last Colonoscopy Most Recent Bone Density Frequency of Cycle (Q days) N/A Date of Last Pap Smear 07/16/2020 Obstetrics History GPAL:G 1 P 0 0 0 0 Past Encounters Encounter ID Performer Location Encounter Start Date Encounter Closed Date Diagnosis/Indication Diagnosis SNOMED-CT Code Diagnosis ICD10 Code Diagnosis Note [id number] Leanna Fowler, ANJU, CNM [facility] [place] [address] 10/22/2023 16:40:33 10/23/2023 09:23:18 test positive 348391349 Z32.01 Discussed Genetics, care, danger signs, diet and exercise. Handouts given. RTC 2 weeks/prn Cramping pain 129527419 R52 push hydration. [id number] [facility]ell [facility] [place] [address] 11/09/2023 10:59:00 11/09/2023 11:39:31 screening 404873480 Z36.89 Gestation period, 8 weeks 00719773 Z3A.08 [id number] Molly [facility]ell [facility] [place] [address] 12/07/2023 09:37:39 12/07/2023 11:49:58 screening 335825146 Z36.89 Gestation period, 12 weeks 38143087 Z3A.12 Additional diagnosis detail: 12 weeks gestation of Carrier de tection, molecular genetics 5615459 Z14.8 [id number] MICHELLE MATOS DO [facility] [address] [place] [address] 01/04/2024 09:30:25 01/04/2024 12:39:20 Gestation period, 16 weeks 22538903 Z3A.16 Additional diagnosis detail: 16 weeks gestation of Normal 6079414 2 Z34.02 Additional diagnosis detail: Encounter for supervisio n of normal first in second trimester Screening for disorder 686505180 Z36.0 Hypothyroi dism in 407380248 O99.280 E03.9 Additional diagnosis detail: Hypothyroi d in , antepartum [id number] MICHELLE MATOS DO [address] [address] 01/28/2024 13:57:24 01/28/2024 15:54:34 Normal 94668942 Z34.02 Additional diagnosis detail: Encounter for supervisio n of normal primigravi da in second trimester, antepartum screening for malformation 932834412 Z36.3 Additional diagnosis detail: Encounter for screening for malformati ons Gestation period, 19 weeks 35744102 Z3A.19 Additional diagnosis detail: 19 weeks gestation of [id number] Piero Christensen MD [address] [address] 02/29/2024 14:06:29 03/07/2024 16:10:14 Gestation period, 24 weeks 087176466 Z3A.24 screening 2437 27069 Z36.9 screening for malformation 402688299 Z36.3 [id number] LALO GRIGGS NP [address] [address] 02/29/2024 14:28:19 03/03/2024 15:45:01 Gestation period, 24 weeks 168659133 Z3A.24 Pt is here for a YOLANDA appointmen t. She is taking vitamins. She has no complaints or questions. Reports feeling movement. Denies vaginal bleeding, abdominal cramps, N/V, contractio ns, or LOF. Denies headache, vision changes, swelling of hands or face, and epigastric pain. Discussed PTL and precaution s given. There are no identifiab le risk factors for pre-term labor. screening for malformation 063282814 Z36.3 Anatomy Complete Hypothyroi dism in 246148529 O99.280 E03.9 Levothyrox ine adjusted at 18 wks. [id number] LALO GRIGGS NP [facility] [address] [place] [address] 03/28/2024 11:08:13 03/28/2024 13:25:47 Gestation period, 28 weeks 40419096 Z3A.28 Normal 8082105 2 Z34.90 Pt is here for a YOLANDA appointmen t. She is taking vitamins. She has no complaints or questions. Reports feeling movement. Denies vaginal bleeding, abdominal cramps, N/V, contractio ns, or LOF. Denies headache, vision changes, swelling of hands or face, and epigastric pain. Discussed PTL and precaution s given. There are no identifiab le risk factors for pre-term labor. screening 2437 27037 Z36.9 Patient to RTC for labs [id number] MALU CHAVARRIA NP [facility] [address] [place] [address] 04/11/2024 16:27:20 04/17/2024 12:53:13 Normal 07834099 Z34.03 Pt is here for a YOLANDA appointmen t. She is taking vitamins. She has no complaints or questions. Denies vaginal bleeding, abdominal cramps, N/V, contractio ns, and LOF. Denies headache, vision changes, swelling of hands or face, and epigastric pain. Reports feeling movement. Discussed Movement Counts. Education provided on Tdap, COVID and Flu vaccineRho Isela: Not needed Education and Order Given ReceivedPl anning to deliver @ [facility] since she lives in [place] GBS: will be obtained at 36 wks36 week HSV suppressio n: N/A Discussed PTL and precaution s given. There are no identifiab le risk factors for pre-term labor. <37>37 weeks: Discussed Labor Precaution s. Follow up in L&D if experienci ng decreased movement, leaking fluid, or regular uterine contractio ns increasing in frequency and/or intensity. Discussed with pt that I do not delivery babies.Rec ommended pt see a Delivery provider next visit.RTC - 2 wks Gestation period, 30 weeks 60950760 Z3A.30 Hypothyroidism 79859210 E03.9 Lump in up per outer quadrant of right breast 0070501521 78148 N63.11 Blood group typing 37097 003 Z01.83 [id number] Xena Sarah MD [facility] [address] [place] [address] 04/18/2024 15:28:03 07/21/2024 16:06:56 Primigravida 175672853 Z34.03 Gestation period, 31 weeks 00517000 Z3A.31 Lump in up per outer quadrant of right breast 0273874671 79786 N63.11 feels like cyst. no prior history of masses or cysts. Has u/s scheduled, but not until 05/08 [id number] Vannessa Lujan MD [facility] [address] [place] [address] 04/25/2024 10:22:02 04/25/2024 11:40:41 Normal 99684286 Z34.03 Hypothyroidism 47468109 E03.8 Gestation period, 32 weeks 0998939 Z3A.32 Health Concerns Section Related Observation LastModified by Organization Detai ls LastModified Time None Recorded Concern Status LastModified by Organization Details LastModified Time None Recorded Advance Directives Directive None Recorded Payers Encounter Date Sequence Insurance Name Policy Number Policy Pierre Covered Member ID Pierre Member ID Guarantor Name 02/29/2024 1 [facility] [id number] Aidee L Jacobs [id number] Aidee Jacobs 02/29/2024 2 [employer] [place] [id number] Aidee L Jacobs [id number] Aidee Jacobs 03/28/2024 1 [facility] [id number] Aidee L Jacobs [id number] Aidee Jacobs 04/11/2024 1 [facility] [id number] Aidee L Jacobs [id number] Aidee Jacobs 04/18/2024 1 [facility] [id number] Aidee L Jacobs [id number] Aidee Jacobs 04/25/2024 1 [facility] [id number] Aidee L Jacobs [id number] Aidee Jacobs Notes Date Note Type Note Provider Name and Address Organization Details Recorded Time 02/29/2024 text/html Patient is here today for a routine OB visit. She is currently at 24.3 weeks gestation. vitamins: {{yes* no}} She {{has* has not}} felt movement.She denies any complaints of the presence of vaginal bleed, leaking fluid, abdominal cramps, nausea, vomiting, headache or visual disturbances. LALO GRIGGS NP [address] [place], [address], [facility] [employer] [facility] 02/29/2024 17:41:27 03/28/2024 text/html Patient is here today for a routine OB visit. She is currently at {{6 7 8 9 10 11 12 13 14 15 16 17 18 19 20 21 22 23 24 25 26 27 28 29 30 31 32 33 34 35 36 37 38 39 40 41 28 .3#}} weeks gestation. vitamins: {{yes* no}} She {{has* has not}} felt movement.She denies any complaints of the presence of vaginal bleed, leaking fluid, abdominal cramps, nausea, vomiting, headache or visual disturbances. She will not have her gtt today. LALO GRIGGS NP [address] [place], [address], [facility] [employer] [facility] 03/28/2024 12:50:06 04/11/2024 text/html Pt is here today for YOLANDA visit. She is currently at 30.3 weeks gestation. She is taking vitamins. She has felt movement. She denies the presence of vaginal bleed, leaking fluid, abdominal cramps, vomiting. Pt voice no concerns. There are no identifiable risk factors for pre-term labor.Patient c/o Right Breast pain, swelling and a lump. Patient also c/o severe constipation and has tried Miralax and several other things, she noticed some blood in her stool yesterday. Patient also c/o Rib pain. MALU CHAVARRIA NP [address] [place], [address], [employer] 04/17/2024 07:25:18 04/18/2024 text/html Aidee is a 29 yr old who presents for a recheck of a right breast mass.She is 31 wks . At her last visit, she reported that her right breast was painful.Dr Christensen saw the pt with EXEC. CREATIVE DIRECTOR Malu Chavarria and palpated the mass, plans are for setting up ultrasound and referral to [facility]. Xena Sarah MD Counts include 234 beds at the [facility], [place], [address], [facility] [employer] 07/20/2024 22:11:14 04/25/2024 text/html Patient is here today for a routine OB visit. She is currently at {{6 7 8 9 10 11 12 13 14 15 16 17 18 19 20 21 22 23 24 25 26 27 28 29 30 31 32 33 34 35 36 37 38 39 40 41 32 .3#}} weeks gestation. vitamins: {{yes* no}} She {{has* has not}} felt movement. She denies any complaints of the presence of vaginal bleed, leaking fluid, abdominal cramps, nausea, vomiting, headache or visual disturbances. Pt had her growth done today. Pt had been having belly button pain. Vannessa Lujan MD Counts include 234 beds at the [facility], [place], [address], [facility] [employer] 04/25/2024 17:24:55 OBGyn Episode Ob Episode Information Episode Created Date Number of Fetuses Patient Bloodtype Patient rh Status Prepregnancy Weight lbs Domestic Partner Domestic Partner Phone Father Name Elementary Reading Tutor Status 11/08/19 24 1 A Positive OPEN Fetus Data First Name Last Name Admitted to NICU Weight (g) Sex Living Outcome Pediatric Complications Fetus ID Race Codes Race Delivery Type [id number] Problems Problem Notes ant plac and 20 week scan wn l Problem Name Start Date End Date Resolution Snomed Code Not e Attention deficit hyperactivity disorder 663296220 Measles non-immune 412487575 Hypothyroidism 05643415 TSH ( 01/03): 2.73, check again at 28w Rubella non-immune 222947074 Depressive disorder 91697130 no meds, counselor Robb Calculation Initial Robb Date Initial Exam Date Initial Exam Provider Initial Ultrasound Date Last Menstrual Period Date Ultra Sound Weeks Gestation 06/17/2024 11/08/2023 10/22/2023 5 Eighteen To Twenty Week Robb Update Ultra Sound Date Fundal Height At Umbil Quickening Date Ultra Sound Latest Weeks Gestation Final Robb Confirmed By Final Robb Confirmed Date Final Robb Date Ultra Sound Latest Days Gestation 0 0 Pre- Flowsheet Flowsheet Date 11/09/2023 Otto Score Blood Edema Fundus Height Fundus Units Glucose Ketones Leukocytes Nitrite Labor Signs Protein Cervic Dilation Cervic Effacement Cervic Station Type Weight in lbs Pre/Post Dialysis Refused Weight 185.432317333442 BP Diastolic BP Location Tested BP Systolic BP Type 68 100 Fetus Heart Rate Present A 169 Fetus Movement Comments moving [place] next [facility] sneek peek, plan NIPT/carrier screen after 10 weeks Flowsheet Date 12/07/2023 Otto Score Blood Edema Fundus Height Fundus Units Glucose Ketones Leukocytes Nitrite Labor Signs Protein Cervic Dilation Cervic Effacement Cervic Station none neg Type Weight in lbs Pre/Post Dialysis Refused With clothes 184.339152625227 BP Diastolic BP Location Tested BP Systolic BP Type 70 L arm 110 sitting Fetus Heart Rate Present A 149 Fetus Movement A Yes Comments unity/carrier screen today, will be moving next week - will try to get appt with [place] office Flowsheet Date 01/04/2024 Otto Score Blood Edema Fundus Height Fundus Units Glucose Ketones Leukocytes Nitrite Labor Signs Protein Cervic Dilation Cervic Effacement Cervic Station Type Weight in lbs Pre/Post Dialysis Refused Weight 184.667993982011 BP Diastolic BP Location Tested BP Systolic BP Type 64 108 Fetus Heart Rate Present A 145 Fetus Movement Comments no ob complaints.move here f [place], oriented to practiceAFP and TSH today. RTO in 4 weeks for anatomy scan Flowsheet Date 01/28/2024 Otto Score Blood Edema Fundus Height Fundus Units Glucose Ketones Leukocytes Nitrite Labor Signs Protein Cervic Dilation Cervic Effacement Cervic Station Type Weight in lbs Pre/Post Dialysis Refused Weight 186.681155849413 BP Diastolic BP Location Tested BP Systolic BP Type 70 116 Fetus Heart Rate Present A 148 Fetus Movement A Yes Comments anatomy incomplete. RTO in 4 weeks Flowsheet Date 02/29/2024 Otto Score Blood Edema Fundus Height Fundus Units Glucose Ketones Leukocytes Nitrite Labor Signs Protein Cervic Dilation Cervic Effacement Cervic Station Type Weight in lbs Pre/Post Dialysis Refused BP Diastolic BP Location Tested BP Systolic BP Type Fetus Heart Rate Present Fetus Movement Comments Flowsheet Date 02/29/2024 Otto Score Blood Edema Fundus Height Fundus Units Glucose Ketones Leukocytes Nitrite Labor Signs Protein Cervic Dilation Cervic Effacement Cervic Station Type Weight in lbs Pre/Post Dialysis Refused Weight 195.926478455041 BP Diastolic BP Location Tested BP Systolic BP Type 74 L arm 120 sitting Fetus Heart Rate Present A 146 Fetus Movement A Yes Comments Anatomy complete. Anterior p lacenta, AF WNL. TSH today. Patient reports occasional Palpatations. advised to increase water intake and given ER precautions. RTC in 4 wks Flowsheet Date 03/28/2024 Otto Score Blood Edema Fundus Height Fundus Units Glucose Ketones Leukocytes Nitrite Labor Signs Protein Cervic Dilation Cervic Effacement Cervic Station none none Type Weight in lbs Pre/Post Dialysis Refused With clothes 200.868584069059 BP Diastolic BP Location Tested BP Systolic BP Type 68 118 sitting Fetus Heart Rate Present A 149 Present Fetus Movement A Yes Comments GTT and 3T on Sunday, Patien t ate before appt. No OB complaints encouraged supportive belt. RTC in 2 wks Flowsheet Date 04/11/2024 Otto Score Blood Edema Fundus Height Fundus Units Glucose Ketones Leukocytes Nitrite Labor Signs Protein Cervic Dilation Cervic Effacement Cervic Station none none none neg Type Weight in lbs Pre/Post Dialysis Refused With clothes 204.178932545987 BP Diastolic BP Location Tested BP Systolic BP Type 80 124 Fetus Heart Rate Present A 145 Present Fetus Movement A Yes Comments C/o - Constipation - Miralax , MOM, colace, recommended & increase water intake. No other OB complaints. PTL precautions discussed. Lump on right breast RUQ. Dr. Christensen assessed & felt the lump. No other OB complaints. US is recommended & referral to [facility]. Need to draw a T&S on her at next visit. RTC - 1wk to check on her breast. Flowsheet Date 04/18/2024 Otto Score Blood Edema Fundus Height Fundus Units Glucose Ketones Leukocytes Nitrite Labor Signs Protein Cervic Dilation Cervic Effacement Cervic Station none 31 cm Type Weight in lbs Pre/Post Dialysis Refused 203.66690031656 BP Diastolic BP Location Tested BP Systolic BP Type 72 112 Fetus Heart Rate Present A 130 Fetus Movement Comments palpable right upper outer b reast mass, about 2 cm. Got appt for [facility] on May 08. Exam most c/w breast cyst Flowsheet Date 04/25/2024 Otto Score Blood Edema Fundus Height Fundus Units Glucose Ketones Leukocytes Nitrite Labor Signs Protein Cervic Dilation Cervic Effacement Cervic Station none none none neg Type Weight in lbs Pre/Post Dialysis Refused Stated 205.489099385886 BP Diastolic BP Location Tested BP Systolic BP Type 50 110 sitting Fetus Heart Rate Present A 141 Fetus Movement A Yes Comments Patient doing well. C/O pleitez y button pain, otherwise doing well. She states she is considering delivery at [facility]. Discussed that we are not on staff there. Recommended [facility] as alternative. u/s today for EFW AGA. Recommended tdap vaccine. 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 Menstrual History Last Menstrual Date Menses Monthly On Bcp Conception Prior Menses Frequency Hcg Plus Date Menarche Onset Age Delivery Information Delivery Date Delivery Type Labor Anesthesia Weeks Gestation Incision Type Labor Labor Length Hrs Delivered By Post Complications Tubal Sterilization Discharge Date Comments Discharge Information Feeding Method Contraceptive Method Maternal HG B and HCT Levels
--- OUTSIDE RECORDS SUMMARY | 2024-11-01 09:06 | XMS_ITS | Clinical Summary ---
Author Organization [facility] Address [address] [place] [address] Care Team Providers Care Spool Carrier Name Role Phone Tino Herzog MD Primary Care Provider [phone] Clara Rios CREDIT AND COLLECTIONS REPRESENTATIVE-CHIEF NURSING OFFICER Unavailable [phone] Carmen Medina CREDIT AND COLLECTIONS REPRESENTATIVE-CHIEF NURSING OFFICER Unavailable [phone] [facility],non-owned Affiliates and Associated Physician Practices is amultiple site organization consisting of ambulatory clinics and hospital sitesin [place], [place], [place] and [place]. This disclosure is being madepursuant to the Care Everywhere program and may not contain all information available regarding this patient. Last updated 18.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 Gender Identity Female 05/01/2023 6:03 PM CDT [...] Date Last Indicated MRSA 01/17/2011 01/17/2011 Insurance [facility] * Guarantor: MIKI YOUNGBLOOD L Account Type Relation to Patient Date of Phone Billing Address Personal/Family 1995 [address] [place] [id number] Care Teams Spool Carrier Relationship Specialty Start Date End Date Tino Herzog MD PCP - General Family Medicine 04/20/23 Clara Rios, CREDIT AND COLLECTIONS REPRESENTATIVE-CHIEF NURSING OFFICER [address] [place] [address] [place] [address] Nurse Practitioner Nurse Practitioner 04/20/23 Carmen Medina APRN-CHIEF NURSING OFFICER [address] [place] [address] [place] [id number] Nurse Practitioner Family Medicine 06/20/23
[2024-11-01 09:43] LABS: Beta HCG Quantitative 713.78 mIU/ML
== END 2024-11-01 09:04 | disposition home or self-care (01) ==
PROVIDERS: PCP Student in an Organized Health Care Education/Training Program; Visit Provider Student in an Organized Health Care Education/Training Program
DX: N94.89 Other specified conditions associated with female genital organs and menstrual cycle (principal)
CPT/HCPCS: 36415; 84702

== ENCOUNTER 2024-11-24 10:05 | Outpatient (CLI) | payer BC, SELFPAY ==
--- OUTSIDE RECORDS SUMMARY | 2024-11-24 10:10 | XMS_ITS | Clinical Summary ---
Author Organization [facility] Address [address] [place] [address] Care Team Providers Care Manager Paper Name Role Phone Tino Herzog MD Primary Care Provider [phone] Clara Rios WAREHOUSEMAN-MEDICAID BILLING SPECIALIST Unavailable [phone] Carmen Medina WAREHOUSEMAN-MEDICAID BILLING SPECIALIST Unavailable [phone] Source Comments [facility],non-owned Affiliates and Associated Physician Practices is amultiple site organization consisting of ambulatory clinics and hospital sitesin [place], [place], [place] and [place]. This disclosure is being madepursuant to the Care Everywhere program and may not contain all information available regarding this patient. 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 Gender Identity Female 05/01/2023 6:03 PM CDT [...] Date Last Indicated MRSA 01/17/2011 01/17/2011 Insurance [facility] * Guarantor: MIKI YOUNGBLOOD L Account Type Relation to Patient Date of Phone Billing Address Personal/Family 1995 [address] [place] [address] Care Teams Manager Paper Relationship Specialty Start Date End Date Tino Herzog MD PCP - General Family Medicine 04/20/23 Clara Rios, WAREHOUSEMAN-MEDICAID BILLING SPECIALIST [address] [place] [address] [place] [address] Nurse Practitioner Nurse Practitioner 04/20/23 Carmen Medina APRN-MEDICAID BILLING SPECIALIST [address] [place] [address] [place] [address] Nurse Practitioner Family Medicine 06/20/23
[2024-11-24 11:56] LABS: Hematocrit 39.2 % (37.0-47.0); Hemoglobin 12.8 g/dL (12.0-15.0); Mean Corpuscular HGB Conc 32.7 g/dl (32-36); Mean Corpuscular Hemoglobin 28.9 pg (26-34); Mean Corpuscular Volume 88.5 fl (80-100); Mean Platelet Volume 9.5 fl (7.4-10.4); Platelet Count Result 287 k/mm3 (150-375); Red Blood Count 4.43 M/mm3 (4.2-5.4); White Blood Count 6.1 K/mm3 (4.5-10.0)
[2024-11-24 12:05] LABS: Glucose 1 Hour PP 50gm Dose 96 mg/dL
[2024-11-24 12:45] LABS: Syphilis IgG/IgM Antibody Negative (Negative)
[2024-11-24 12:46] LABS: HIV 1/2 Ab P24 Ag Result Negative (Negative)
[2024-11-24 12:48] LABS: Hepatitis B Surface Antigen Negative (Negative)
[2024-11-26 08:34] LABS: CMV IgG Antibody >10.00 U/mL
[2024-11-26 08:42] LABS: Varicella IgG Antibody 4.64 S/CO
== END 2024-11-24 10:06 | disposition home or self-care (01) ==
LOC: ANHLAB 10:07
PROVIDERS: Visit Provider Student in an Organized Health Care Education/Training Program
DX: N91.2 Amenorrhea, unspecified (principal)
CPT/HCPCS: 36415; 82947; 84702; 85027; 86593; 86644; 86703; 86747; 86762; 86787; 86850; 86900; 86901; 87086; 87340; G0432

== ENCOUNTER 2024-12-12 08:38 | Outpatient (CLI) | payer BC, SELFPAY ==
--- NOTE | ~2024-12-12 | US_ITS ---
EXAMINATION: US OB <=14 wk fetus w TV DATE: 12/12/2024 14:11 CDT INDICATION: Encounter for the supervision of the normal COMPARISON: 04/16/2024 TECHNIQUE: Real-time transabdominal obstetric ultrasound. FINDINGS: 2 para 1 Last menstrual period is given as 10/04/2024. Estimated date of delivery by last menstrual period is 07/11/2025 The uterus measures 9.5 x 6.0 x 6.5 cm. Well-circumscribed anechoic avascular structure within the cervix, consistent with a nabothian cyst. A possible gestational sac is identified within the uterus. The Mean Gestational Sac size measures 17.8 mm, corresponding to an approximate gestational age of 6 weeks and 5 days No pole is identified on the current examination. No yolk sac is present. The right ovary is unremarkable in echogenicity and size measuring 1.5 x 1.7 x 1.8 cm. Despite prolonged interrogation, the left ovary was not visualized. Estimated date of delivery by ultrasound is 08/02/2025 IMPRESSION: Single intrauterine gestation with an approximate gestational age of 6 weeks and 5 days, with no feta l pole detected. Please correlate these findings with the quantitative serum beta hCG, which was not available at the time of this dictation. Reviewed, dictated and finalized at location A. IMPRESSION: Single intrauterine gestation with an approximate gestational age of 6 weeks an d 5 days, with no pole detected. Please correlate these findings with the quantitative serum beta hCG, which was not available at the time of this dictation.
--- OUTSIDE RECORDS SUMMARY | 2024-12-12 08:45 | XMS_ITS | Clinical Summary ---
Author Organization [facility] Address [address] [place] [address] Care Team Providers Care Youth Care Specialist Name Role Phone Tino Herzog MD Primary Care Provider [phone] Clara Rios EXECUTIVE ADMIN-CABLE WIRER Unavailable [phone] Carmen Medina EXECUTIVE ADMIN-CABLE WIRER Unavailable [phone] Source Comments [facility],non-owned Affiliates and Associated Physician Practices is amultiple site organization consisting of ambulatory clinics and hospital sitesin [place], [place], [place] and [place]. This disclosure is being madepursuant to the Care Everywhere program and may not contain all information available regarding this patient. 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 Gender Identity Female 05/01/2023 6:03 PM CDT [...] 11:06 AM CDT Height 160 cm (5' 3) 10/12/2023 11:06 AM CDT Body Mass Index [...] Date Last Indicated MRSA 01/17/2011 01/17/2011 Insurance [facility] Care Teams Youth Care Specialist Relationship Specialty Start Date End Date Tino Herzog MD PCP - General Family Medicine 04/20/23 Clara Rios, EXECUTIVE ADMIN-CABLE WIRER [address] [place] [address] Nurse Practitioner Nurse Practitioner 04/20/23 Carmen Medina APRN-[facility] [address] [place] [address] Nurse Practitioner Family Medicine 06/20/23
== END 2024-12-12 08:39 | disposition home or self-care (01) ==
PROVIDERS: Visit Provider Student in an Organized Health Care Education/Training Program
DX: Z34.90 Encounter for supervision of normal pregnancy, unspecified, unspecified trimester (principal)
CPT/HCPCS: 76801; 76817

== ENCOUNTER 2024-12-15 11:06 | Outpatient (CLI) | payer BC, SELFPAY ==
--- OUTSIDE RECORDS SUMMARY | 2024-12-15 11:41 | XMS_ITS | Clinical Summary ---
Author Organization [facility] Address [address] [facility] [place] [address] Care Team Providers Care Server Administrator Name Role Phone Tino Herzog MD Primary Care Provider [phone] Clara Rios MERCHANDISE PLANNING MANAGER-MAINTENANCE DATA ANALYST Unavailable [phone] Carmen Medina MERCHANDISE PLANNING MANAGER-MAINTENANCE DATA ANALYST Unavailable [phone] Source Comments [facility],non-owned Affiliates and Associated Physician Practices is amultiple site organization consisting of ambulatory clinics and hospital sitesin [place], [place], [place] and [place]. This disclosure is being madepursuant to the Care Everywhere program and may not contain all information available regarding this patient. 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 [place] [address] Nurse Practitioner Nurse Practitioner 04/20/23 Carmen Medina, MERCHANDISE PLANNING MANAGER-MAINTENANCE DATA ANALYST [address] [place] [address] Nurse Practitioner Family Medicine 06/20/23
--- OUTSIDE RECORDS SUMMARY | 2024-12-15 11:41 | XMS_ITS | Data Portability ---
Author Organization [place] , [facility] Address [address] [place] [address] Assessment No assessment recorded. Plan of Treatment Reminders Order Date Submit Date Provider Last Modified By Organization Details Last Modified Time Details Appointments None recorded. Lab abo group + rh type, blood 2023 [facility], [address] [place], [address], 4 18:44:40 glucose tolerance test, post-50G, 1-hour 2023 024 [facility], [address] [place], [address], 4 10:59:57 CBC w/ auto diff 2023 024 [facility], [address] [place], [address], 4 11:00:30 obstetric screen, serum or blood 2023 024 [facility], [address] [place], [address], 4 11:31:28 TSH, serum or plasma 2023 024 [employer] [facility], [address] [place], [address], 4 13:35:09 Referral None recorded. Procedures None recorded. Surgeries None recorded. Imaging US, obstetric, follow-up 2023 024 [email or web address] Not available 17:23:53 US, breast, unilateral - pt is , is having pain. 2023 [email or web address] [facility], [address] [facility], [address], [address], 15:40:11 US, obstetric, follow-up 2023 024 PIERCE Not available 17:40:35 US, obstetric, limited 2023 024 [place] [address] Not available 17:13:53 Medication Orders None recorded. Patient TargetsNo targets recorded. Patient Instructions Encounter Date Encounter Id Patient Instructions Last Modified By Organization Details Last Modified Time 03/28/2024 [id number] learning about screening for gestational diabetes [email or web address] [...] NUMBE R: 866.6 97.83 78 Not Available [facility] [address], [place], [address], 03/01/2024 13:35:09 03/31/20 24 04/01/2024 (50G) 1HR - GLUCO SE MARLON ANCE TEST, GESTA DRAGAN PEREZ N glucose (50g) 1 hour 103 mg/dL <135 normal Not Available Silvio[facility] [address], [address], 04/01/2024 10:59:57 03/31/20 24 04/01/2024 CBC (INCL UDES DIFF/ PLT) WBC 9.3 thous and/u L 4.0 - 9.8 normal Not Available [address], [address], 04/01/2024 11:00:29 03/31/20 24 04/01/2024 CBC (INCL UDES DIFF/ PLT) RBC 3.7 mary on/uL 3.9 - 4.9 low Not Available [address], [address], 04/01/2024 11:00:29 03/31/20 24 04/01/2024 CBC (INCL UDES DIFF/ PLT) hemoglobin 11.2 g/dL 11.8 - 14.8 low Not Available [address], [address], 04/01/2024 11:00:29 03/31/20 24 04/01/2024 CBC (INCL UDES DIFF/ PLT) hematocrit 33.7 % 35.5 - 44.0 low Not Available [address], [address], 04/01/2024 11:00:29 03/31/20 24 04/01/2024 CBC (INCL UDES DIFF/ PLT) MCV 90.6 fL 82.0 - 99.0 normal Not Available [address], [address], 04/01/2024 11:00:29 03/31/20 24 04/01/2024 CBC (INCL UDES DIFF/ PLT) MCH 30.1 pg 27.2 - 32.6 normal Not Available [address], [address], 04/01/2024 11:00:29 03/31/20 24 04/01/2024 CBC (INCL UDES DIFF/ PLT) MCHC 33.2 g/dL 31.5 - 35.5 normal Not Available [address], [address], 04/01/2024 11:00:03/31/20 24 04/01/2024 CBC (INCL UDES DIFF/ PLT) RDW-CV 12.9 % 11.5 - 14.5 normal Not Available [address], [address], 04/01/2024 11:00:29 03/31/20 24 04/01/2024 CBC (INCL UDES DIFF/ PLT) platelet 258 thous and/u L 140 - 350 normal Not Available [address], [address], 04/01/2024 11:00:29 03/31/20 24 04/01/2024 CBC (INCL UDES DIFF/ PLT) MPV 10.2 fL 9.3 - 12.4 normal Not Available [address], [address], 04/01/2024 11:00:29 03/31/20 24 04/01/2024 CBC (INCL UDES DIFF/ PLT) absolute neutrophil 7.02 thous and/u L 1.90 - 7.00 high Not Available [address], [address], 04/01/2024 11:00:29 03/31/20 24 04/01/2024 CBC (INCL UDES DIFF/ PLT) absolute lymphocyte 1.43 thous and/u L 0.70 - 4.50 normal Not Available [address], [address], 04/01/2024 11:00:29 03/31/20 24 04/01/2024 CBC (INCL UDES DIFF/ PLT) absolute monocyte 0.53 thous and/u L 0.10 - 1.30 normal Not Available [address], [address], 04/01/2024 11:00:29 03/31/20 24 04/01/2024 CBC (INCL UDES DIFF/ PLT) absolute eosinophil 0.22 thous and/u L <0.70 normal Not Available [address], [address], 04/01/2024 11:00:29 03/31/20 24 04/01/2024 CBC (INCL UDES DIFF/ PLT) absolute basophil 0.04 thous and/u L <0.20 normal Not Available [address], [address], 04/01/2024 11:00:29 03/31/20 24 04/01/2024 CBC (INCL UDES DIFF/ PLT) absolute immature granulocyte 0.06 thous and/u L <0.03 high Not Available [address], [address], 04/01/2024 11:00:29 03/31/20 24 04/01/2024 OB 28W (SYPH HIV 1/2 Ag/Ab Non-Re active non-re active normal Not Available [address], [address], 04/01/2024 11:31:28 03/31/20 24 04/01/2024 OB 28W (SYPH syphilis Ab Non-Re active non-re active normal Not Available [address], [address], 04/01/2024 11:31:28 03/01/20 24 02/29/2024 , sendy kerr w-up No observ ation record ed. [email or web address] [address], [place], [address], 03/03/2024 09:46:52 04/25/20 24 04/25/2024 US, obste tric, follo w-up No observ ation record ed. [email or web address] [address], [place], [address], 04/25/2024 11:41:39 Result Notes None recorded. Problems Name Problem SNOMED Code Status Onset Date Resolution Date Notes Provider Name and Address Organization Details Recorded Time Pregnanc y 11000108 Completed 202312/11/2024 Tabby luna, [place] - [facility] 5 12:59:30 Rubella non-immu ne 956416711 Completed MICHELLE MATOS, DO [address] [place] [address], [address], [facility] - [facility] 4 18:54:05 Measles non-immu ne 616510496 Completed MICHELLE MATOS DO [address] [place] [address], [address], [facility] - [facility] 4 18:54:13 Attentio n deficit hyperact ivity disorder 036059631 Completed MICHELLE MATOS, DO [address] [place] [address], [address], [facility] - [facility] 4 18:54:23 Depressi ve disorder 50928835 Completed no meds, counselor MICHELLE MATOS, DO [address] [place] [address], [address], [facility] - [facility] 4 18:54:58 Hypothyr oidism 08401535 Completed TSH (01/03): 2.73, check again at 28w MICHELLE MATOS, DO [address] [place] [address], [address], [facility] - [facility] 4 18:55:48 Problem Notes None recorded. Procedures Surgical History Date Name Laterality Status Provider Name and Address Organization Details Recorded Time 07/16/2020 Date of Last Pap Smear completed Emma Ahuja [place] - [facility] 12/07/2023 09:48:57 Imaging Results None recorded. Procedure Notes None recorded. Medical Equipment None Reported. Allergies Allergen ID Allergen Name Allergen Category Reaction Reaction Severity Criticality Documentation Date Start Date Code Code System Note Provider Name and Address Organization Details Recorded Time 796225 house dust allergeni c extract environme nt,medica tion Not available Not available Not available 10/22/2023 50180 9 RxNorm Ayala Rivers [facility], [place] [employer] [facility] 17:01:53 413714 cow milk allergeni c extract food,medi cation Not available Not available Not available 10/22/2023 69938 5 RxNorm Ayala Pelayomt. [facility], [place] [employer] [facility] 17:01:53 Medications Name Sig Start Date Stop Date [...] No t Available Vitals Date Recorded Body mass index (BMI) Body weight Systolic blood pressure Diastolic blood pressure Provider Name and Address Organization Details Last Updated DateTime 02/29/2024 34.6 kg/m2 54979.23 g 120 mm[Hg] 74 mm[Hg] Ayalaeugenia Rivers [place] [employer] [facility] 02/29/2024 15:26:15 Date Recorded Body height Provider Name an d Address Organization Details Last Updated DateTime 02/29/2024 160.02 cm Malu Miguel [facility] 02/29/2024 14:31:37 Date Recorded Body height Body mass index (BMI) Body weight Body temperature Systolic blood pressure Diastolic blood pressure Provider Name and Address Organization Details Last Updated DateTime 160.02 cm 35.6 kg/m2 53051.3 5 g 98.3 [degF] 118 mm[Hg] 68 mm[Hg] Cathleen Gifford [facility] 11:31:51 Date Recorded Body weight Body mass index (BMI) Body height Systolic blood pressure Diastolic blood pressure Provider Name and Address Organization Details Last Updated DateTime 04/11/2024 89550.8 4348 g 36.1 kg/m2 160.02 cm 124 mm[Hg] 80 mm[Hg] Kristina Lopezmargarette [facility] 16:46:02 Date Recorded Body weight Provider Name an d Address Organization Details Last Updated DateTime 04/18/2024 82668.12069 g Xena Sarah MD [address] [place], [address], [facility] 04/18/2024 16:05:36 Date Recorded Body height Body mass index (BMI) Systolic blood pressure Diastolic blood pressure Provider Name and Address Organization Details Last Updated DateTime 04/18/2024 160.02 cm 36 kg/m2 112 mm[Hg] 72 mm[Hg] Shaunaronit Peguero [facility] 04/18/2024 15:38:36 Date Recorded Body height Body mass index (BMI) Body weight Systolic blood pressure Diastolic blood pressure Provider Name and Address Organization Details Last Updated DateTime 04/25/2024 160.02 cm 36.4 kg/m2 35804.87 g 110 mm[Hg] 50 mm[Hg] Emery George [facility] 11:21:01 Social History Question Answer Notes LastModified by Organizat ion Details LastModified Time Tobacco Smoking Status Never Smoker Ayala luna, [facility] 10/22/2023 17:01:54 Are You Blind [...] 10/22/2023 What Is Your Relationship Status? Single [email or web address] Information not available 12/07/2023 Are You Sexually Active? Yes Information not available 10/22/2023 What Types Of Sporting Activities Do You Participate In? Walks, Small Hikes In Warmer Weather, Swimming In Warm Weather. Information not available 10/22/2023 Have You Used IV Drugs? No [email or web address] Information not available 04/11/2024 Sex: Female Functional Status Question Answer Note LastModified by Organizat ion Details LastModified Time Do you use any illicit or recreational drugs? Yes Information not available 10/22/2023 Do you or have you ever used any other forms of tobacco or nicotine? No Information not available 12/07/2023 Are you currently employed? Yes Information not available 10/22/2023 What is your exercise level? Occasional Information [...] available 2023 17:01:53 Medical History Condition Response Depression Y Hypothyroidism Y Seasonal allergies Y IBS (Irritable Bowel Syndrome) Y ADD/ADHD Y Eating Disorder Y Gynecological History Statement/Question Response Flow Moderate [...] SNOMED-CT Code Diagnosis ICD10 Code Diagnosis Note [id number] Leanna Fowler, [facility], CNM [facility] [address] [place] [address] 10/22/2023 16:40:33 10/23/2023 09:23:18 test positive 119204073 Z32.01 Discussed Genetics, care, danger signs, diet and exercise. Handouts given. RTC 2 weeks/prn Cramping pain 200031261 R52 push hydration. 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, molecular genetics 9130597 Z14.8 [id number] MICHELLE MATOS DO [facility] [address] [place] [address] 01/04/2024 09:30:25 01/04/2024 12:39:20 Gestation period, 16 weeks 82807924 Z3A.16 Additional diagnosis detail: 16 weeks gestation of Normal 7272459 2 Z34.02 Additional diagnosis detail: Encounter for haydee watts of normal first in second trimester Screening for disorder 515283306 Z36.0 Hypothyroi dism in 410235956 O99.280 E03.9 Additional diagnosis detail: Hypothyroi d in , antepartum [id number] MICHELLERENATO MATOS DO [facility] [address] [place] [address] 01/28/2024 13:57:24 01/28/2024 15:54:34 Normal 78304571 Z34.02 Additional diagnosis detail: Encounter for supervisio n of normal primigravi da in second trimester, antepartum screening for malformation 434674460 Z36.3 Additional diagnosis detail: Encounter for screening for malformati ons Gestation period, 19 weeks 98151264 Z3A.19 Additional diagnosis detail: 19 weeks gestation of [id number] Piero Christensen MD [address] [address] 02/29/2024 14:06:29 03/07/2024 16:10:14 Gestation period, 24 weeks 927581202 Z3A.24 screening 2437 48886 Z36.9 screening for malformation 723154054 Z36.3 [id number] LALO GRIGGS NP [facility] [address] [place] [address] 02/29/2024 14:28:19 03/03/2024 15:45:01 Gestation period, 24 weeks 297350303 Z3A.24 Pt is here for a YOLANDA appointmen t. She is taking vitamins. She has no complaints or questions. Reports feeling movement. Denies vaginal bleeding, abdominal cramps, N/V, contractio ns, or LOF. Denies headache, vision changes, swelling of hands or face, and epigastric pain. Discussed PTL and precaution s given. There are no identifiab le risk factors for pre-term labor. screening for malformation 823937889 Z36.3 Anatomy Complete Hypothyroi dism in 993791170 O99.280 E03.9 Levothyrox ine adjusted at 18 wks. [id number] LALO GRIGGS NP [facility] [address] [facility] [place] [address] 03/28/2024 11:08:13 03/28/2024 13:25:47 Gestation period, 28 weeks 40071475 Z3A.28 Normal 8823554 2 Z34.90 Pt is here for a YOLANDA appointmen t. She is taking vitamins. She has no complaints or questions. Reports feeling movement. Denies vaginal bleeding, abdominal cramps, N/V, contractio ns, or LOF. Denies headache, vision changes, swelling of hands or face, and epigastric pain. Discussed PTL and precaution s given. There are no identifiab le risk factors for pre-term labor. screening 2437 [address]74[address] Z36.9 Patient to RTC for labs [id number] MALU CHAVARRIA NP [facility] [address] [place] [address] 04/11/2024 16:27:20 04/17/2024 12:53:13 Normal 89157975 Z34.03 Pt is here for a YOLANDA [...] Order Given ReceivedPl anning to deliver @ [facility] since she lives in [place] GBS: will be obtained at 36 wks36 [...] - 2 wks Gestation period, 30 weeks 12338931 Z3A.30 Hypothyroidism 02771528 E03.9 Lump in up per outer quadrant of right breast 9224866603 44630 N63.11 Blood group typing 86675 003 Z01.83 [id number] Xena Sarah MD [facility] [address] [place] [address] 04/18/2024 15:28:03 07/21/2024 16:06:56 Primigravida 897152114 Z34.03 Gestation period, 31 weeks 01929651 Z3A.31 Lump in up per outer quadrant of right breast 8261329868 80320 N63.11 feels like cyst. no prior history of masses or cysts. Has u/s scheduled, but not until 05/08 [id number] Vannessa Lujan MD [facility] [address] [place] [address] 04/25/2024 10:22:02 04/25/2024 11:40:41 Normal 91889877 Z34.03 Hypothyroidism 90154905 E03.8 Gestation period, 32 weeks 9960759 Z3A.32 Health Concerns Section Related Observation LastModified by Organization Detai ls LastModified Time None Recorded Concern Status LastModified by Organization Details LastModified Time None Recorded Advance Directives Directive None Recorded Payers Insurance Date Sequence Insurance Name Policy Number Policy Pierre Covered Member ID Pierre Member ID Guarantor Name 03/29/2024 1 [facility] [id number] Aidee Jacobs [id number] Aidee Jacobs 03/29/2024 2 [employer] [place] - [place]MO[place] [id number] Aidee Jacobs [id number] Aidee Jacobs Notes Date Note Type Note Provider Name and Address Organization Details Recorded Time 02/29/2024 text/html Patient is here today for a routine OB visit. She is currently at 24.3 weeks gestation. vitamins: yes She has felt movement.She denies any complaints of the presence of vaginal bleed, leaking fluid, abdominal cramps, nausea, vomiting, headache or visual disturbances. LALO GRIGGS NP [address] [place], [address], [facility] 02/29/2024 17:41:27 03/28/2024 text/html Patient is here today for a routine OB visit. She is currently at 6 7 8 9 10 11 12 1 3 14 15 16 17 18 1 9 20 21 22 23 24 2 5 26 27 28 29 30 3 1 32 33 34 35 36 3 7 38 39 40 41 28.3 weeks gestation. vitamins: yes She has felt movement.She denies any complaints of the presence of vaginal bleed, leaking fluid, abdominal cramps, nausea, vomiting, headache or visual disturbances. She will not have her gtt today. LALO GRIGGS NP [facility] [place], [address], [facility] [place] 03/28/2024 12:50:06 04/11/2024 text/html Pt is [...] also c/o Rib pain. MALU CHAVARRIA NP [facility] [place], [address], [facility] IV 04/17/2024 07:25:18 04/18/2024 text/html Aidee is a 29 yr old who presents for a recheck of a right breast mass.She is 31 wks . At her last visit, she reported that her right breast was painful.Dr Christensen saw the pt with DARIELA Chavarria and palpated the mass, plans are for setting up ultrasound and referral to [facility]. Xena Sarah MD [address] [place] [address], [address], [facility] [employer] IV 07/20/2024 22:11:14 04/25/2024 text/html Patient is here today for a routine OB visit. She is currently at 6 7 8 9 10 11 12 1 3 14 15 16 17 18 1 9 20 21 22 23 24 2 5 26 27 28 29 30 3 1 32 33 34 35 36 3 7 38 39 40 41 32.3 weeks gestation. vitamins: yes She has felt movement. She denies any complaints of the presence of vaginal bleed, leaking fluid, abdominal cramps, nausea, vomiting, headache or visual disturbances. Pt had her growth done today. Pt had been having belly button pain. 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 Status 11/08/19 24 1 A Positive CLOSED Fetus Data First Name Last Name Admitted to NICU Weight (g) Sex Living Outcome Pediatric Complications Fetus ID Race Codes Race Delivery Type [id number] Problems Problem Notes ant plac and 20 week scan wn l Problem Name Start Date End Date Resolution Snomed Code Not e Attention deficit hyperactivity disorder 240122005 Measles non-immune 105935210 Hypothyroidism 65195895 TSH ( 01/03): 2.73, check again at 28w Rubella non-immune 044265326 Depressive disorder 60540949 no meds, counselor Robb Calculation Initial Robb [...] Weight in lbs Pre/Post Dialysis Refused Weight 185.601067108054 BP Diastolic BP Location Tested BP Systolic BP Type 68 100 Fetus Heart Rate Present A 169 Fetus Movement Comments moving [place] [facility], plan NIPT/carrier screen after 10 weeks Flowsheet Date 12/07/2023 Otto Score Blood Edema Fundus Height Fundus Units Glucose Ketones Leukocytes Nitrite Labor Signs Protein Cervic Dilation Cervic Effacement Cervic Station none neg Type Weight in lbs Pre/Post Dialysis Refused With clothes 184.835785112890 BP Diastolic BP Location Tested BP Systolic BP Type 70 L arm 110 sitting Fetus Heart Rate Present A 149 Fetus Movement A Yes Comments unity/carrier screen today, will be moving next week - will try to get appt with [facility] office Flowsheet Date 01/04/2024 Otto Score Blood Edema Fundus Height Fundus Units Glucose Ketones Leukocytes Nitrite Labor Signs Protein Cervic Dilation Cervic Effacement Cervic Station Type Weight in lbs Pre/Post Dialysis Refused Weight 184.932692399113 BP Diastolic BP Location Tested BP Systolic BP Type 64 108 Fetus Heart Rate Present A 145 Fetus Movement Comments no ob complaints.move here f rom [place], oriented to practiceAFP and TSH today. RTO in 4 weeks for anatomy scan Flowsheet Date 01/28/2024 Otto Score Blood Edema Fundus Height Fundus Units Glucose Ketones Leukocytes Nitrite Labor Signs Protein Cervic Dilation Cervic Effacement Cervic Station Type Weight in lbs Pre/Post Dialysis Refused Weight 186.240797526158 BP Diastolic BP Location Tested BP Systolic [...] Weight in lbs Pre/Post Dialysis Refused Weight 195.736802463154 BP Diastolic BP Location Tested BP Systolic [...] in lbs Pre/Post Dialysis Refused With clothes 200.988152870080 BP Diastolic BP Location Tested BP Systolic [...] in lbs Pre/Post Dialysis Refused With clothes 204.353051900746 BP Diastolic BP Location Tested BP Systolic [...] complaints. US is recommended & referral to [facility]. Need to draw a T&S on her at next visit. RTC - 1wk to check on her breast. Flowsheet Date 04/18/2024 Otto Score Blood Edema Fundus Height Fundus Units Glucose Ketones Leukocytes Nitrite Labor Signs Protein Cervic Dilation Cervic Effacement Cervic Station none 31 cm Type Weight in lbs Pre/Post Dialysis Refused 203.39088608010 BP Diastolic BP Location Tested BP Systolic BP Type 72 112 Fetus Heart Rate Present A 130 Fetus Movement Comments palpable right upper outer b reast mass, about 2 cm. Got appt for [facility] on May 08. Exam most c/w breast cyst Flowsheet Date 04/25/2024 Otto Score Blood Edema Fundus Height Fundus Units Glucose Ketones Leukocytes Nitrite Labor Signs Protein Cervic Dilation Cervic Effacement Cervic Station none none none neg Type Weight in lbs Pre/Post Dialysis Refused Stated 205.931468317133 BP Diastolic BP Location Tested BP Systolic BP Type 50 110 sitting Fetus Heart Rate Present A 141 Fetus Movement A Yes Comments Patient doing well. C/O pleitez y button pain, otherwise doing well. She states she is considering delivery at [facility]. Discussed that we are not on staff there. Recommended [facility] as alternative. u/s today for EFW AGA. Recommended tdap vaccine. 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 Menstrual History Last Menstrual Date Menses Monthly On Bcp Conception Prior Menses Frequency Hcg Plus Date Menarche Onset Age Delivery Information Delivery Date Delivery Type Labor Anesthesia Weeks Gestation Incision Type Labor Labor Length Hrs Delivered By Post Complications Tubal Sterilization Discharge Date Comments Discharge Information Feeding Method Contraceptive Method Maternal HG B and HCT Levels
== END 2024-12-15 11:07 | disposition home or self-care (01) ==
PROVIDERS: Visit Provider Student in an Organized Health Care Education/Training Program
DX: N91.2 Amenorrhea, unspecified (principal)
CPT/HCPCS: 36415; 84702

== ENCOUNTER 2024-12-17 13:21 | Outpatient (CLI) | payer BC, SELFPAY ==
--- OUTSIDE RECORDS SUMMARY | 2024-12-17 13:27 | XMS_ITS | Data Portability ---
Author Organization [facility] , [facility] Address [address] [place] [address] Assessment No assessment recorded. Plan of Treatment Reminders Order Date Submit Date Provider Last Modified By Organization Details Last Modified Time Details Appointments None recorded. Lab abo group + rh type, blood 2023 PST [facility], [address] [place], [address], 4 18:44:40 glucose tolerance test, post-50G, 1-hour 2023 024 Yabb[facility], [address] [place], [address], 4 10:59:57 CBC w/ auto diff 2023 024 [facility], [address] [place], [address], 4 11:00:30 obstetric screen, serum or blood 2023 024 [facility], [address] [place], [address], 4 11:31:28 TSH, serum or plasma 2023 024 [facility], [address] [place], [address], 4 13:35:09 Referral None recorded. Procedures None recorded. Surgeries None recorded. Imaging US, obstetric, follow-up 2023 024 [email or web address] Not available 17:23:53 US, breast, unilateral - pt is , is having pain. [email or web address] [facility], [address] [facility], [address], [address], 15:40:11 US, obstetric, follow-up 2023 024 PIERCE Not available 17:40:35 US, obstetric, limited 2023 024 [place] [address] Not available 17:13:53 Medication Orders None recorded. Patient TargetsNo targets recorded. Patient Instructions Encounter Date Encounter Id Patient Instructions Last Modified By Organization Details Last Modified Time 03/28/2024 [id number] learning about screening for gestational diabetes [email or web address] [...] NUMBE R: 866.6 97.83 78 Not Available [facility] [address] [address], [place], [address], 03/01/2024 13:35:09 03/31/20 24 04/01/2024 (50G) 1HR - GLUCO SE MARLON ANCE TEST, GESTA DRAGAN PEREZ N glucose (50g) 1 hour 103 mg/dL <135 normal Not Available Silvioa [address], [address], 04/01/2024 10:59:57 03/31/20 24 04/01/2024 CBC (INCL UDES DIFF/ PLT) WBC 9.3 thous and/u L 4.0 - 9.8 normal Not Available [address], [address], 04/01/2024 11:00:29 03/31/20 24 04/01/2024 CBC (INCL UDES DIFF/ PLT) RBC 3.7 mary on/uL 3.9 - 4.9 low Not Available [address], [address], 04/01/2024 11:00:29 03/31/20 24 04/01/2024 CBC (INCL UDES DIFF/ PLT) hemoglobin 11.2 g/dL 11.8 - 14.8 low Not Available [address], [address], 04/01/2024 11:00:29 03/31/20 24 04/01/2024 CBC (INCL UDES DIFF/ PLT) hematocrit 33.7 % 35.5 - 44.0 low Not Available [address], [address], 04/01/2024 11:00:29 03/31/20 24 04/01/2024 CBC (INCL UDES DIFF/ PLT) MCV 90.6 fL 82.0 - 99.0 normal Not Available [address], [address], 04/01/2024 11:00:29 03/31/20 24 04/01/2024 CBC (INCL UDES DIFF/ PLT) MCH 30.1 pg 27.2 - 32.6 normal Not Available [address], [address], 04/01/2024 11:00:29 03/31/20 24 04/01/2024 CBC (INCL UDES DIFF/ PLT) MCHC 33.2 g/dL 31.5 - 35.5 normal Not Available [address], [address], 04/01/2024 11:00:03/31/20 24 04/01/2024 CBC (INCL UDES DIFF/ PLT) RDW-CV 12.9 % 11.5 - 14.5 normal Not Available [address], [address], 04/01/2024 11:00:29 03/31/20 24 04/01/2024 CBC (INCL UDES DIFF/ PLT) platelet 258 thous and/u L 140 - 350 normal Not Available [address], [address], 04/01/2024 11:00:29 03/31/20 24 04/01/2024 CBC (INCL UDES DIFF/ PLT) MPV 10.2 fL 9.3 - 12.4 normal Not Available [address], [address], 04/01/2024 11:00:29 03/31/20 24 04/01/2024 CBC (INCL UDES DIFF/ PLT) absolute neutrophil 7.02 thous and/u L 1.90 - 7.00 high Not Available [address], [address], 04/01/2024 11:00:29 03/31/20 24 04/01/2024 CBC (INCL UDES DIFF/ PLT) absolute lymphocyte 1.43 thous and/u L 0.70 - 4.50 normal Not Available [address], [address], 04/01/2024 11:00:29 03/31/20 24 04/01/2024 CBC (INCL UDES DIFF/ PLT) absolute monocyte 0.53 thous and/u L 0.10 - 1.30 normal Not Available [address], [address], 04/01/2024 11:00:29 03/31/20 24 04/01/2024 CBC (INCL UDES DIFF/ PLT) absolute eosinophil 0.22 thous and/u L <0.70 normal Not Available [address], [address], 04/01/2024 11:00:29 03/31/20 24 04/01/2024 CBC (INCL UDES DIFF/ PLT) absolute basophil 0.04 thous and/u L <0.20 normal Not Available [address], [address], 04/01/2024 11:00:29 03/31/20 24 04/01/2024 CBC (INCL UDES DIFF/ PLT) absolute immature granulocyte 0.06 thous and/u L <0.03 high Not Available [address], [address], 04/01/2024 11:00:29 03/31/20 24 04/01/2024 OB 28W (SYPH HIV 1/2 Ag/Ab Non-Re active non-re active normal Not Available [address], [address], 04/01/2024 11:31:28 03/31/20 24 04/01/2024 OB 28W (SYPH syphilis Ab Non-Re active non-re active normal Not Available [address], [address], 04/01/2024 11:31:28 03/01/20 24 02/29/2024 , sendy kerr w-up No observ ation record ed. [email or web address] [address], [place], [address], 03/03/2024 09:46:52 04/25/20 24 04/25/2024 US, obste tric, follo w-up No observ ation record ed. [email or web address] [address], [place], [address], 04/25/2024 11:41:39 Result Notes None recorded. Problems Name Problem SNOMED Code Status Onset Date Resolution Date Notes Provider Name and Address Organization Details Recorded Time Pregnanc y 67821216 Completed 202312/11/2024 Tabby luna, [place] - [facility] 5 12:59:30 Rubella non-immu ne 779449132 Completed MICHELLE MATOS, DO [address] [place] [address], [address], [facility] - [facility] 4 18:54:05 Measles non-immu ne 522125482 Completed MICHELLE MATOS DO [address] [place] [address], [address], [facility] - [facility] 4 18:54:13 Attentio n deficit hyperact ivity disorder 466778840 Completed MICHELLE MATOS, DO [address] [place] [address], [address], [facility] - [facility] 4 18:54:23 Depressi ve disorder 85224497 Completed no meds, counselor MICHELLE MATOS, DO [address] [place] [address], [address], [facility] - [facility] 4 18:54:58 Hypothyr oidism 98523064 Completed TSH (01/03): 2.73, check again at 28w MICHELLE MATOS, DO [address] [place] [address], [address], [facility] - [facility] 4 18:55:48 Problem Notes None recorded. Procedures Surgical History Date Name Laterality Status Provider Name and Address Organization Details Recorded Time 07/16/2020 Date of Last Pap Smear completed Emma Ahuja [place] - [facility] 12/07/2023 09:48:57 Imaging Results None recorded. Procedure Notes None recorded. Medical Equipment None Reported. Allergies Allergen ID Allergen Name Allergen Category Reaction Reaction Severity Criticality Documentation Date Start Date Code Code System Note Provider Name and Address Organization Details Recorded Time 548295 house dust allergeni c extract environme nt,medica tion Not available Not available Not available 10/22/2023 02285 9 RxNorm Ayala Rivers [facility], [place] [employer] [facility] 17:01:53 287190 cow milk allergeni c extract food,medi cation Not available Not available Not available 10/22/2023 14072 5 RxNorm [facility] [place] [facility] 17:01:53 Medications Name Sig Start Date [...] Details Last Updated DateTime 02/29/2024 34.6 kg/m2 49361.23 g 120 mm[Hg] 74 mm[Hg] Ayalaeugenia Rivers [place] [facility] 02/29/2024 15:26:15 Date Recorded Body height Provider Name an d Address Organization Details Last Updated DateTime 02/29/2024 160.02 cm Malu Miguel [facility] [employer] 02/29/2024 14:31:37 Date Recorded Body height Body mass index (BMI) Body weight Body temperature Systolic blood pressure Diastolic blood pressure Provider Name and Address Organization Details Last Updated DateTime 160.02 cm 35.6 kg/m2 22425.3 5 g 98.3 [degF] 118 mm[Hg] 68 mm[Hg] Cathleen Gifford [facility] 11:31:51 Date Recorded Body weight Body mass index (BMI) Body height Systolic blood pressure Diastolic blood pressure Provider Name and Address Organization Details Last Updated DateTime 04/11/2024 67105.8 4348 g 36.1 kg/m2 160.02 cm 124 mm[Hg] 80 mm[Hg] Kristina Lopezmargarette [facility] 16:46:02 Date Recorded Body weight Provider Name an d Address Organization Details Last Updated DateTime 04/18/2024 70353.63416 g Xena Sarah MD [address] [place], [address], [facility] 04/18/2024 16:05:36 Date Recorded Body height Body mass index (BMI) Systolic blood pressure Diastolic blood pressure Provider Name and Address Organization Details Last Updated DateTime 04/18/2024 160.02 cm 36 kg/m2 112 mm[Hg] 72 mm[Hg] Shaunaronit Peguero [facility] 04/18/2024 15:38:36 Date Recorded Body height Body mass index (BMI) Body weight Systolic blood pressure Diastolic blood pressure Provider Name and Address Organization Details Last Updated DateTime 04/25/2024 160.02 cm 36.4 kg/m2 59323.87 g 110 mm[Hg] 50 mm[Hg] Emery George [facility] 11:21:01 Social History Question Answer Notes LastModified by Organizat ion Details LastModified Time Tobacco Smoking Status Never Smoker Ayala luna, [facility] 10/22/2023 17:01:54 Are You Blind [...] 10/22/2023 What Is Your Relationship Status? Single [email or web address] Information not available 12/07/2023 Are You Sexually [...] SNOMED-CT Code Diagnosis ICD10 Code Diagnosis Note [id number] Leanna Fowler, [facility], CNM [facility] [address] [place] [address] 10/22/2023 16:40:33 10/23/2023 09:23:18 test positive 214063610 Z32.01 Discussed Genetics, care, danger signs, diet and exercise. Handouts given. RTC 2 weeks/prn Cramping pain 826650094 R52 push hydration. 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, molecular genetics 1563868 Z14.8 [id number] MICHELLE MATOS DO [facility] [address] [place] [address] 01/04/2024 09:30:25 01/04/2024 12:39:20 Gestation period, 16 weeks 38720450 Z3A.16 Additional diagnosis detail: 16 weeks gestation of Normal 9554508 2 Z34.02 Additional diagnosis detail: Encounter for haydee watts of normal first in second trimester Screening for disorder 370290815 Z36.0 Hypothyroi dism in 344884832 O99.280 E03.9 Additional diagnosis detail: Hypothyroi d in , antepartum [id number] MICHELLERENATO MATOS DO [facility] [address] [place] [address] 01/28/2024 13:57:24 01/28/2024 15:54:34 Normal 42813657 Z34.02 Additional diagnosis detail: Encounter for supervisio n of normal primigravi da in second trimester, antepartum screening for malformation 283649239 Z36.3 Additional diagnosis detail: Encounter for screening for malformati ons Gestation period, 19 weeks 68150908 Z3A.19 Additional diagnosis detail: 19 weeks gestation of [id number] Piero Christensen MD [address] [address] 02/29/2024 14:06:29 03/07/2024 16:10:14 Gestation period, 24 weeks 831324503 Z3A.24 screening 2437 [address] Z36.9 screening for malformation 196270131 Z36.3 [id number] LALO GRIGGS NP [facility] [address] [place] [address] 02/29/2024 14:28:19 03/03/2024 15:45:01 Gestation period, 24 weeks 342697005 Z3A.24 Pt is here for a YOLANDA appointmen t. She is taking vitamins. She has no complaints or questions. Reports feeling movement. Denies vaginal bleeding, abdominal cramps, N/V, contractio ns, or LOF. Denies headache, vision changes, swelling of hands or face, and epigastric pain. Discussed PTL and precaution s given. There are no identifiab le risk factors for pre-term labor. screening for malformation 538019210 Z36.3 Anatomy Complete Hypothyroi dism in 475480697 O99.280 E03.9 Levothyrox ine adjusted at 18 wks. [id number] LALO GRIGGS NP [facility] [address] [place] [address] 03/28/2024 11:08:13 03/28/2024 13:25:47 Gestation period, 28 weeks 80945464 Z3A.28 Normal 6909429 2 Z34.90 Pt is here for a YOLANDA appointmen t. She is taking vitamins. She has no complaints or questions. Reports feeling movement. Denies vaginal bleeding, abdominal cramps, N/V, contractio ns, or LOF. Denies headache, vision changes, swelling of hands or face, and epigastric pain. Discussed PTL and precaution s given. There are no identifiab le risk factors for pre-term labor. screening 2437 [address] Z36.9 Patient to RTC for labs [id number] MALU CHAVARRIA NP [facility] [address] [place] [address] 04/11/2024 16:27:20 04/17/2024 12:53:13 Normal 48251166 Z34.03 Pt is here for a YOLANDA [...] Order Given ReceivedPl anning to deliver @ [place] since she lives in [place] GBS: will be obtained at 36 wks36 [...] - 2 wks Gestation period, 30 weeks 29220139 Z3A.30 Hypothyroidism 00821728 E03.9 Lump in up per outer quadrant of right breast 4284913452 96466 N63.11 Blood group typing 89018 003 Z01.83 [id number] Xena Sarah MD [facility] [address] [place] [address] 04/18/2024 15:28:03 07/21/2024 16:06:56 Primigravida 028809766 Z34.03 Gestation period, 31 weeks 95007897 Z3A.31 Lump in up per outer quadrant of right breast 2127364904 63006 N63.11 feels like cyst. no prior history of masses or cysts. Has u/s scheduled, but not until 05/08 [id number] Vannessa Lujan MD [facility] [address] [place] [address] 04/25/2024 10:22:02 04/25/2024 11:40:41 Normal 24402793 Z34.03 Hypothyroidism 24909041 E03.8 Gestation period, 32 weeks 1605113 Z3A.32 Health Concerns Section Related Observation LastModified by Organization Detai ls LastModified Time None Recorded Concern Status LastModified by Organization Details LastModified Time None Recorded Advance Directives Directive None Recorded Payers Insurance Date Sequence Insurance Name Policy Number Policy Pierre Covered Member ID Pierre Member ID Guarantor Name 03/29/2024 1 [facility] [id number] Aidee Jacobs [id number] Aidee Jacobs 03/29/2024 2 [employer] [place] [place] - [place] [id number] Aidee Jacobs [id number] Aidee Jacobs Notes Date Note Type Note Provider Name and Address Organization Details Recorded Time 02/29/2024 text/html Patient is here today for a routine OB visit. She is currently at 24.3 weeks gestation. vitamins: yes She has felt movement.She denies any complaints of the presence of vaginal bleed, leaking fluid, abdominal cramps, nausea, vomiting, headache or visual disturbances. LALO GRIGGS NP [address] [place], [address], [facility] 02/29/2024 17:41:27 03/28/2024 text/html Patient is here [...] have her gtt today. LALO GRIGGS NP [facility] [place], [address], [facility] [employer] [facility] 03/28/2024 12:50:06 04/11/2024 text/html Pt is [...] also c/o Rib pain. MALU CHAVARRIA NP [facility] [place], [address], [facility] [employer] IV 04/17/2024 07:25:18 04/18/2024 text/html Aidee is a 29 yr old who presents for a recheck of a right breast mass.She is 31 wks . At her last visit, she reported that her right breast was painful.Dr Christensen saw the pt with DARIELA Chavarria and palpated the mass, plans are for setting up ultrasound and referral to [facility]. Xena Sarah MD [address] [place] [address], [address], [facility] [employer] 07/20/2024 22:11:14 04/25/2024 text/html Patient is [...] belly button pain. Vannessa Lujan MD [address] [place], [address], [facility] [employer] 04/25/2024 17:24:55 OBGyn Episode Ob Episode Information Episode Created Date Number of Fetuses Patient Bloodtype Patient rh Status Prepregnancy Weight lbs Domestic Partner Domestic Partner Phone Father Name Interventional Tech Status 11/08/19 24 1 A Positive CLOSED Fetus Data First Name Last Name Admitted to NICU Weight (g) Sex Living Outcome Pediatric Complications Fetus ID Race Codes Race Delivery Type [id number] Problems Problem Notes ant plac and 20 week scan wn l Problem Name Start Date End Date Resolution Snomed Code Not e Attention deficit hyperactivity disorder 017629984 Measles non-immune 183372405 Hypothyroidism 93514107 TSH ( 01/03): 2.73, check again at 28w Rubella non-immune 525223036 Depressive disorder 87629179 no meds, counselor Robb Calculation Initial Robb [...] Weight in lbs Pre/Post Dialysis Refused Weight 185.646351894766 BP Diastolic BP Location Tested BP Systolic BP Type 68 100 Fetus Heart Rate Present A 169 Fetus Movement Comments [facility] [place] [facility], plan NIPT/carrier screen after 10 weeks Flowsheet Date 12/07/2023 Otto Score Blood Edema Fundus Height Fundus Units Glucose Ketones Leukocytes Nitrite Labor Signs Protein Cervic Dilation Cervic Effacement Cervic Station none neg Type Weight in lbs Pre/Post Dialysis Refused With clothes 184.604310675402 BP Diastolic BP Location Tested BP Systolic [...] Weight in lbs Pre/Post Dialysis Refused Weight 184.242929969486 BP Diastolic BP Location Tested BP Systolic BP Type 64 108 Fetus Heart Rate Present A 145 Fetus Movement Comments no ob complaints.move here [place], oriented to practiceAFP and TSH today. RTO in 4 weeks for anatomy scan Flowsheet Date 01/28/2024 Otto Score Blood Edema Fundus Height Fundus Units Glucose Ketones Leukocytes Nitrite Labor Signs Protein Cervic Dilation Cervic Effacement Cervic Station Type Weight in lbs Pre/Post Dialysis Refused Weight 186.735160063175 BP Diastolic BP Location Tested BP Systolic [...] Weight in lbs Pre/Post Dialysis Refused Weight 195.375138500158 BP Diastolic BP Location Tested BP Systolic [...] in lbs Pre/Post Dialysis Refused With clothes 200.671966052030 BP Diastolic BP Location Tested BP Systolic [...] in lbs Pre/Post Dialysis Refused With clothes 204.926093290873 BP Diastolic BP Location Tested BP Systolic [...] complaints. US is recommended & referral to [facility]. Need to draw a T&S on her at next visit. RTC - 1wk to check on her breast. Flowsheet Date 04/18/2024 Otto Score Blood Edema Fundus Height Fundus Units Glucose Ketones Leukocytes Nitrite Labor Signs Protein Cervic Dilation Cervic Effacement Cervic Station none 31 cm Type Weight in lbs Pre/Post Dialysis Refused 203.72237201723 BP Diastolic BP Location Tested BP Systolic BP Type 72 112 Fetus Heart Rate Present A 130 Fetus Movement Comments palpable right upper outer b reast mass, about 2 cm[address] for [facility] on May 08. Exam most c/w breast cyst Flowsheet Date 04/25/2024 Otto Score Blood Edema Fundus Height Fundus Units Glucose Ketones Leukocytes Nitrite Labor Signs Protein Cervic Dilation Cervic Effacement Cervic Station none none none neg Type Weight in lbs Pre/Post Dialysis Refused Stated 205.297152391674 BP Diastolic BP Location Tested BP Systolic BP Type 50 110 sitting Fetus Heart Rate Present A 141 Fetus Movement A Yes Comments Patient doing well. C/O pleitez y button pain, otherwise doing well. She states she is considering delivery at [facility] [place]. Discussed that we are not on staff there. Recommended [facility] as alternative. u/s today for EFW AGA. Recommended tdap vaccine. Discussed selecting service developer. Menstrual History Last Menstrual Date Menses Monthly On Bcp Conception Prior Menses Frequency Hcg Plus Date Menarche Onset Age Delivery Information Delivery Date Delivery Type Labor Anesthesia Weeks Gestation Incision Type Labor Labor Length Hrs Delivered By Post Complications Tubal Sterilization Discharge Date Comments Discharge Information Feeding Method Contraceptive Method Maternal HG B and HCT Levels
--- OUTSIDE RECORDS SUMMARY | 2024-12-17 13:27 | XMS_ITS | Clinical Summary ---
Author Organization [facility] Address [address] [place] [address] Care Team Providers Care Special Events Assistant Name Role Phone Tino Herzog MD Primary Care Provider [phone] Clara Rios LOAN SUPERVISOR-OFFICE MACHINE PUNCH OPERATOR Unavailable [phone] Carmen Medina LOAN SUPERVISOR-OFFICE MACHINE PUNCH OPERATOR Unavailable [phone] Source Comments [facility],non-owned Affiliates and Associated Physician Practices is amultiple site organization consisting of ambulatory clinics and hospital sitesin [place], [place], [place] and [place]. This disclosure is being madepursuant to the Care Everywhere program and may not contain all information available regarding this patient. 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 [place] [address] Nurse Practitioner Nurse Practitioner 04/20/23 Carmen Medina, LOAN SUPERVISOR-OFFICE MACHINE PUNCH OPERATOR [address] [place] [address] Nurse Practitioner Family Medicine 06/20/23
== END 2024-12-17 13:22 | disposition home or self-care (01) ==
LOC: ANHLAB 13:25
PROVIDERS: Visit Provider Student in an Organized Health Care Education/Training Program
DX: O20.0 Threatened abortion (principal); Z3A.00 Weeks of gestation of pregnancy not specified
CPT/HCPCS: 36415; 84702; 87086

== ENCOUNTER 2024-12-19 16:15 | Emergency (ER) | payer BC, SELFPAY ==
--- NOTE | ~2024-12-19 | US_ITS ---
EXAMINATION: US OB <= 14 weeks fetus INDICATION: vaginal bleeding, known miscarriage TECHNIQUE: Sonography of the pelvis was performed by transabdominal techniques. COMPARISON: 12/12/2024. RESULT: Uterus: 10.5 x 5.4 x 4.6 cm. Anteverted. Homogenous myometrium. Endometrial stripe measures 13 mm, w ithout significant code Doppler flow. Intrauterine gestational sac: Not seen. Right ovary: Not well visualized. No adnexal mass. Left ovary: Not well visualized. No adnexal mass. Pelvis free fluid: None. IMPRESSION: No gestational sac detected in this transabdominal pelvic ultrasound. The endometrial stripe measures 13 mm, without significant vascular flow, which most likely represent s endometrial tissue and/or blood clot. Retained products considered less likely but not excluded. Re commend continued clinical/laboratory and sonographic follow-up. Bilateral ovaries not confidently visualized. No adnexal mass is detected. Reviewed, dictated and finalized at location K. IMPRESSION: No gestational sac detected in this transabdominal pelvic ultrasound. The endometrial stripe measures 13 mm, without significant vascular flow, which most likely represents endometrial tissue and/or blood clot. Retained products considered less likely but not excluded. Recommend continued clinical/laborato ry and sonographic follow-up. Bilateral ovaries not confidently visualized. No adnexal mass is detected.
--- OUTSIDE RECORDS SUMMARY | 2024-12-19 16:18 | XMS_ITS | Data Portability ---
Author Organization [employer] , [facility] Address [address] [place] [address] Assessment No assessment recorded. Plan of Treatment Reminders Order Date Submit Date Provider Last Modified By Organization Details Last Modified Time Details Appointments None recorded. Lab abo group + rh type, blood 2023 Laticínios Bom G[email or web address], [address] [place], [address], 4 18:44:40 glucose tolerance test, post-50G, 1-hour 2023 024 [facility], [address] [place], [address], 4 10:59:57 CBC w/ auto diff 2023 024 [facility], [address] [place], [address], 4 11:00:30 obstetric screen, serum or blood 2023 024 [facility], [address] [place], [address], 4 11:31:28 TSH, serum or plasma 2023 024 Captain Wise [facility], [address] [place], [address], 4 13:35:09 Referral None recorded. Procedures None recorded. Surgeries None recorded. Imaging US, obstetric, follow-up 2023 024 [email or web address] Not available 17:23:53 US, breast, unilateral - pt is , is having pain. [email or web address] [facility], [address] [facility], [address], [address], 15:40:11 US, obstetric, follow-up 2023 024 PIERCE Not available 17:40:35 US, obstetric, limited 2023 024 [place] [address] Not available 17:13:53 Medication Orders None recorded. Patient TargetsNo targets recorded. Patient Instructions Encounter Date Encounter Id Patient Instructions Last Modified By Organization Details Last Modified Time 03/28/2024 [id number] learning about screening for gestational diabetes [email or web address] [...] NUMBE R: 866.6 97.83 78 Not Available Neurelis [facility] [address], [place], [address], 03/01/2024 13:35:09 03/31/20 24 04/01/2024 (50G) 1HR - GLUCO SE MARLON ANCE TEST, GESTA DRAGAN PEREZ N glucose (50g) 1 hour 103 mg/dL <135 normal Not Available Silvioa [address], [address], 04/01/2024 10:59:57 03/31/20 24 04/01/2024 CBC (INCL UDES DIFF/ PLT) WBC 9.3 thous and/u L 4.0 - 9.8 normal Not Available [address], [address], 04/01/2024 11:00:29 03/31/20 24 04/01/2024 CBC (INCL UDES DIFF/ PLT) RBC 3.7 mary on/uL 3.9 - 4.9 low Not Available [address], [address], 04/01/2024 11:00:29 03/31/20 24 04/01/2024 CBC (INCL UDES DIFF/ PLT) hemoglobin 11.2 g/dL 11.8 - 14.8 low Not Available [address], [address], 04/01/2024 11:00:29 03/31/20 24 04/01/2024 CBC (INCL UDES DIFF/ PLT) hematocrit 33.7 % 35.5 - 44.0 low Not Available [address], [address], 04/01/2024 11:00:29 03/31/20 24 04/01/2024 CBC (INCL UDES DIFF/ PLT) MCV 90.6 fL 82.0 - 99.0 normal Not Available [address], [address], 04/01/2024 11:00:29 03/31/20 24 04/01/2024 CBC (INCL UDES DIFF/ PLT) MCH 30.1 pg 27.2 - 32.6 normal Not Available [address], [address], 04/01/2024 11:00:29 03/31/20 24 04/01/2024 CBC (INCL UDES DIFF/ PLT) MCHC 33.2 g/dL 31.5 - 35.5 normal Not Available [address], [address], 04/01/2024 11:00:03/31/20 24 04/01/2024 CBC (INCL UDES DIFF/ PLT) RDW-CV 12.9 % 11.5 - 14.5 normal Not Available [address], [address], 04/01/2024 11:00:29 03/31/20 24 04/01/2024 CBC (INCL UDES DIFF/ PLT) platelet 258 thous and/u L 140 - 350 normal Not Available [address], [address], 04/01/2024 11:00:29 03/31/20 24 04/01/2024 CBC (INCL UDES DIFF/ PLT) MPV 10.2 fL 9.3 - 12.4 normal Not Available [address], [address], 04/01/2024 11:00:29 03/31/20 24 04/01/2024 CBC (INCL UDES DIFF/ PLT) absolute neutrophil 7.02 thous and/u L 1.90 - 7.00 high Not Available [address], [address], 04/01/2024 11:00:29 03/31/20 24 04/01/2024 CBC (INCL UDES DIFF/ PLT) absolute lymphocyte 1.43 thous and/u L 0.70 - 4.50 normal Not Available [address], [address], 04/01/2024 11:00:29 03/31/20 24 04/01/2024 CBC (INCL UDES DIFF/ PLT) absolute monocyte 0.53 thous and/u L 0.10 - 1.30 normal Not Available [address], [address], 04/01/2024 11:00:29 03/31/20 24 04/01/2024 CBC (INCL UDES DIFF/ PLT) absolute eosinophil 0.22 thous and/u L <0.70 normal Not Available [address], [address], 04/01/2024 11:00:29 03/31/20 24 04/01/2024 CBC (INCL UDES DIFF/ PLT) absolute basophil 0.04 thous and/u L <0.20 normal Not Available [address], [address], 04/01/2024 11:00:29 03/31/20 24 04/01/2024 CBC (INCL UDES DIFF/ PLT) absolute immature granulocyte 0.06 thous and/u L <0.03 high Not Available [address], [address], 04/01/2024 11:00:29 03/31/20 24 04/01/2024 OB 28W (SYPH HIV 1/2 Ag/Ab Non-Re active non-re active normal Not Available [address], [address], 04/01/2024 11:31:28 03/31/20 24 04/01/2024 OB 28W (SYPH syphilis Ab Non-Re active non-re active normal Not Available [address], [address], 04/01/2024 11:31:28 03/01/20 24 02/29/2024 , sendy kerr w-up No observ ation record ed. [email or web address] [address], [place], [address], 03/03/2024 09:46:52 04/25/20 24 04/25/2024 US, obste tric, follo w-up No observ ation record ed. [email or web address] [address], [place], [address], 04/25/2024 11:41:39 Result Notes None recorded. Problems Name Problem SNOMED Code Status Onset Date Resolution Date Notes Provider Name and Address Organization Details Recorded Time Pregnanc y 62690676 Completed 202312/11/2024 Tabby luna, [place] - [employer] [facility] 5 12:59:30 Rubella non-immu ne 305556397 Completed MICHELLE MATOS, DO [address] [place] [address], [phone], [facility] - [employer] 4 18:54:05 Measles non-immu ne 282759214 Completed MICHELLE MATOS DO [address] [place] [address], [phone], [facility] - [employer] [facility] 4 18:54:13 Attentio n deficit hyperact ivity disorder 707465627 Completed MICHELLE MATOS, DO [address] [place] [address], [phone], [facility] - [employer] [facility] 4 18:54:23 Depressi ve disorder 34315556 Completed no meds, counselor MICHELLE MATOS, DO [address] [place] [address], [phone], [facility] - [employer] [facility] 4 18:54:58 Hypothyr oidism 15279322 Completed TSH (01/03): 2.73, check again at 28w MICHELLE MATOS, DO [address] [place] [address], [phone], [facility] - [employer] [facility] 4 18:55:48 Problem Notes None recorded. Procedures Surgical History Date Name Laterality Status Provider Name and Address Organization Details Recorded Time 07/16/2020 Date of Last Pap Smear completed Emma Ahuja [place] - [employer] [facility] [employer] 12/07/2023 09:48:57 Imaging Results None recorded. Procedure Notes None recorded. Medical Equipment None Reported. Allergies Allergen ID Allergen Name Allergen Category Reaction Reaction Severity Criticality Documentation Date Start Date Code Code System Note Provider Name and Address Organization Details Recorded Time 004126 house dust allergeni c extract environme nt,medica tion Not available Not available Not available 10/22/2023 69773 9 RxNorm Ayala Rivers [facility], [place] [employer] [facility] 17:01:53 413596 cow milk allergeni c extract food,medi cation Not available Not available Not available 10/22/2023 16290 5 RxNorm Ayala [facility], [place] [employer] [facility] 17:01:53 Medications Name Sig Start Date [...] Details Last Updated DateTime 02/29/2024 34.6 kg/m2 72499.23 g 120 mm[Hg] 74 mm[Hg] Ayalaeugenia Rivers [place] [employer] [facility] 02/29/2024 15:26:15 Date Recorded Body height Provider Name an d Address Organization Details Last Updated DateTime 02/29/2024 160.02 cm Malu Miguel [facility] [employer] 02/29/2024 14:31:37 Date Recorded Body height Body mass index (BMI) Body weight Body temperature Systolic blood pressure Diastolic blood pressure Provider Name and Address Organization Details Last Updated DateTime 160.02 cm 35.6 kg/m2 55825.3 5 g 98.3 [degF] 118 mm[Hg] 68 mm[Hg] Cathleen Gifford [facility] [employer] [facility] 11:31:51 Date Recorded Body weight Body mass index (BMI) Body height Systolic blood pressure Diastolic blood pressure Provider Name and Address Organization Details Last Updated DateTime 04/11/2024 94473.8 4348 g 36.1 kg/m2 160.02 cm 124 mm[Hg] 80 mm[Hg] Kristina Lopezmargarette [facility] [employer] [facility] IV 16:46:02 Date Recorded Body weight Provider Name an d Address Organization Details Last Updated DateTime 04/18/2024 61760.10715 g Xena Sarah MD [address] [place], [address], [facility] [employer] [facility] 04/18/2024 16:05:36 Date Recorded Body height Body mass index (BMI) Systolic blood pressure Diastolic blood pressure Provider Name and Address Organization Details Last Updated DateTime 04/18/2024 160.02 cm 36 kg/m2 112 mm[Hg] 72 mm[Hg] Shaunaronit Peguero [facility] [employer] [facility] 04/18/2024 15:38:36 Date Recorded Body height Body mass index (BMI) Body weight Systolic blood pressure Diastolic blood pressure Provider Name and Address Organization Details Last Updated DateTime 04/25/2024 160.02 cm 36.4 kg/m2 66078.87 g 110 mm[Hg] 50 mm[Hg] Emery George [facility] [employer] [facility] IV 11:21:01 Social History Question Answer Notes LastModified by Organizat ion Details LastModified Time Tobacco Smoking Status Never Smoker Ayala luna, [facility] [employer] [facility] 10/22/2023 17:01:54 Are You Blind [...] 10/22/2023 What Is Your Relationship Status? Single [email or web address] Information not available 12/07/2023 Are You Sexually [...] History Condition Response Depression Y Hypothyroidism Y ADD/ADHD Y Eating Disorder Y Seasonal allergies Y IBS (Irritable Bowel Syndrome) Y Gynecological History Statement/Question Response Flow Moderate [...] SNOMED-CT Code Diagnosis ICD10 Code Diagnosis Note [id number] Leanna Fowler, [facility], CNM [facility] [address] [place] [address] 10/22/2023 16:40:33 10/23/2023 09:23:18 test positive 396500879 Z32.01 Discussed Genetics, care, danger signs, diet and exercise. Handouts given. RTC 2 weeks/prn Cramping pain 525695386 R52 push hydration. 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, molecular genetics 4744510 Z14.8 [id number] MICHELLE MATOS DO [facility] [address] [place] [address] 01/04/2024 09:30:25 01/04/2024 12:39:20 Gestation period, 16 weeks 86164545 Z3A.16 Additional diagnosis detail: 16 weeks gestation of Normal 5755990 2 Z34.02 Additional diagnosis detail: Encounter for haydee watts of normal first in second trimester Screening for disorder 676294951 Z36.0 Hypothyroi dism in 287685354 O99.280 E03.9 Additional diagnosis detail: Hypothyroi d in , antepartum [id number] MICHELLERENATO MATOS DO [facility] [address] [place] [address] 01/28/2024 13:57:24 01/28/2024 15:54:34 Normal 04303538 Z34.02 Additional diagnosis detail: Encounter for supervisio n of normal primigravi da in second trimester, antepartum screening for malformation 311086523 Z36.3 Additional diagnosis detail: Encounter for screening for malformati ons Gestation period, 19 weeks 49390012 Z3A.19 Additional diagnosis detail: 19 weeks gestation of [id number] Piero Christensen MD [address] [address] 02/29/2024 14:06:29 03/07/2024 16:10:14 Gestation period, 24 weeks 986958210 Z3A.24 screening 2437 26454 Z36.9 screening for malformation 463096467 Z36.3 [id number] LALO GRIGGS NP [facility] [address] [place] [address] 02/29/2024 14:28:19 03/03/2024 15:45:01 Gestation period, 24 weeks 812059692 Z3A.24 Pt is here for a YOLANDA appointmen t. She is taking vitamins. She has no complaints or questions. Reports feeling movement. Denies vaginal bleeding, abdominal cramps, N/V, contractio ns, or LOF. Denies headache, vision changes, swelling of hands or face, and epigastric pain. Discussed PTL and precaution s given. There are no identifiab le risk factors for pre-term labor. screening for malformation 209538367 Z36.3 Anatomy Complete Hypothyroi dism in 951296115 O99.280 E03.9 Levothyrox ine adjusted at 18 wks. [id number] LALO GRIGGS NP [facility] [address] [facility] [place] [facility] [address] 03/28/2024 11:08:13 03/28/2024 13:25:47 Gestation period, 28 weeks 18590527 Z3A.28 Normal 2110804 2 Z34.90 Pt is here for a YOLANDA appointmen t. She is taking vitamins. She has no complaints or questions. Reports feeling movement. Denies vaginal bleeding, abdominal cramps, N/V, contractio ns, or LOF. Denies headache, vision changes, swelling of hands or face, and epigastric pain. Discussed PTL and precaution s given. There are no identifiab le risk factors for pre-term labor. screening 2437 05903 Z36.9 Patient to RTC for labs [id number] MALU CHAVARRIA NP [facility] [address] [place] [address] 04/11/2024 16:27:20 04/17/2024 12:53:13 Normal 12373183 Z34.03 Pt is here for a YOLANDA [...] Order Given ReceivedPl anning to deliver @ [facility] since she lives in [place] GBS: will be obtained at 36 wks36 [...] - 2 wks Gestation period, 30 weeks 01637509 Z3A.30 Hypothyroidism 71983946 E03.9 Lump in up per outer quadrant of right breast 1368030342 61590 N63.11 Blood group typing 35786 003 Z01.83 [id number] Xena Sarah MD [facility] [address] [place] [address] 04/18/2024 15:28:03 07/21/2024 16:06:56 Primigravida 047523896 Z34.03 Gestation period, 31 weeks 80352896 Z3A.31 Lump in up per outer quadrant of right breast 6360455353 30263 N63.11 feels like cyst. no prior history of masses or cysts. Has u/s scheduled, but not until 05/08 [id number] Vannessa Lujan MD [facility] [address] [place] [address] 04/25/2024 10:22:02 04/25/2024 11:40:41 Normal 10333050 Z34.03 Hypothyroidism 33667372 E03.8 Gestation period, 32 weeks 2612046 Z3A.32 Health Concerns Section Related Observation LastModified by Organization Detai ls LastModified Time None Recorded Concern Status LastModified by Organization Details LastModified Time None Recorded Advance Directives Directive None Recorded Payers Insurance Date Sequence Insurance Name Policy Number Policy Pierre Covered Member ID Pierre Member ID Guarantor Name 03/29/2024 1 [facility] [id number] Aidee Jacobs [id number] Aidee Jacobs 03/29/2024 2 [employer] [place] [place] - [place] [id number] Aidee Jacobs [id number] Aidee Jacobs Notes Date Note Type Note Provider Name and Address Organization Details Recorded Time 02/29/2024 text/html Patient is here today for a routine OB visit. She is currently at 24.3 weeks gestation. vitamins: yes She has felt movement.She denies any complaints of the presence of vaginal bleed, leaking fluid, abdominal cramps, nausea, vomiting, headache or visual disturbances. LALO GRIGGS NP [address] [place], [address], [facility] 02/29/2024 17:41:27 03/28/2024 text/html Patient is here [...] have her gtt today. LALO GRIGGS NP [facility] [place], [address], [facility] [employer] [facility] 03/28/2024 12:50:06 04/11/2024 text/html Pt is [...] also c/o Rib pain. MALU CHAVARRIA NP [facility] [place], [address], [facility] [employer] IV 04/17/2024 07:25:18 04/18/2024 text/html Aidee is a 29 yr old who presents for a recheck of a right breast mass.She is 31 wks . At her last visit, she reported that her right breast was painful.Dr Christensen saw the pt with DARIELA Chavarria and palpated the mass, plans are for setting up ultrasound and referral to [facility]. Xena Sarah MD [address] [place] [address], [address], [facility] [employer] [facility] 07/20/2024 22:11:14 04/25/2024 text/html Patient is [...] belly button pain. Vannessa Lujan MD [address] [place], [address], [facility] [employer] 04/25/2024 17:24:55 OBGyn Episode Ob Episode Information Episode Created Date Number of Fetuses Patient Bloodtype Patient rh Status Prepregnancy Weight lbs Domestic Partner Domestic Partner Phone Father Name Crystallizer Operator Status 11/08/19 24 1 A Positive CLOSED Fetus Data First Name Last Name Admitted to NICU Weight (g) Sex Living Outcome Pediatric Complications Fetus ID Race Codes Race Delivery Type [id number] Problems Problem Notes ant plac and 20 week scan wn l Problem Name Start Date End Date Resolution Snomed Code Not e Attention deficit hyperactivity disorder 086176515 Measles non-immune 858266617 Hypothyroidism 24952855 TSH ( 01/03): 2.73, check again at 28w Rubella non-immune 265114124 Depressive disorder 89232232 no meds, counselor Robb Calculation Initial Robb [...] Weight in lbs Pre/Post Dialysis Refused Weight 185.897778954149 BP Diastolic BP Location Tested BP Systolic BP Type 68 100 Fetus Heart Rate Present A 169 Fetus Movement Comments moving [place] [facility] sne[facility] peek, plan NIPT/carrier screen after 10 weeks Flowsheet Date 12/07/2023 Otto Score Blood Edema Fundus Height Fundus Units Glucose Ketones Leukocytes Nitrite Labor Signs Protein Cervic Dilation Cervic Effacement Cervic Station none neg Type Weight in lbs Pre/Post Dialysis Refused With clothes 184.733119542902 BP Diastolic BP Location Tested BP Systolic [...] Weight in lbs Pre/Post Dialysis Refused Weight 184.765716188731 BP Diastolic BP Location Tested BP Systolic BP Type 64 108 Fetus Heart Rate Present A 145 Fetus Movement Comments no ob complaints.move here [place], oriented to practiceAFP and TSH today. RTO in 4 weeks for anatomy scan Flowsheet Date 01/28/2024 Otto Score Blood Edema Fundus Height Fundus Units Glucose Ketones Leukocytes Nitrite Labor Signs Protein Cervic Dilation Cervic Effacement Cervic Station Type Weight in lbs Pre/Post Dialysis Refused Weight 186.567478317761 BP Diastolic BP Location Tested BP Systolic [...] Weight in lbs Pre/Post Dialysis Refused Weight 195.373805054379 BP Diastolic BP Location Tested BP Systolic [...] in lbs Pre/Post Dialysis Refused With clothes 200.635041461781 BP Diastolic BP Location Tested BP Systolic [...] in lbs Pre/Post Dialysis Refused With clothes 204.859329355274 BP Diastolic BP Location Tested BP Systolic [...] complaints. US is recommended & referral to [facility]. Need to draw a T&S on her at next visit. RTC - 1wk to check on her breast. Flowsheet Date 04/18/2024 Otto Score Blood Edema Fundus Height Fundus Units Glucose Ketones Leukocytes Nitrite Labor Signs Protein Cervic Dilation Cervic Effacement Cervic Station none 31 cm Type Weight in lbs Pre/Post Dialysis Refused 203.02262951408 BP Diastolic BP Location Tested BP Systolic BP Type 72 112 Fetus Heart Rate Present A 130 Fetus Movement Comments palpable right upper outer b reast mass, about 2 cm. Got appt for [facility] on May 08. Exam most c/w breast cyst Flowsheet Date 04/25/2024 Otto Score Blood Edema Fundus Height Fundus Units Glucose Ketones Leukocytes Nitrite Labor Signs Protein Cervic Dilation Cervic Effacement Cervic Station none none none neg Type Weight in lbs Pre/Post Dialysis Refused Stated 205.655223251858 BP Diastolic BP Location Tested BP Systolic BP Type 50 110 sitting Fetus Heart Rate Present A 141 Fetus Movement A Yes Comments Patient doing well. C/O pleitez y button pain, otherwise doing well. She states she is considering delivery at [facility]. Discussed that we are not on staff there. Recommended [facility] as alternative. u/s today for EFW AGA. Recommended tdap vaccine. Discussed selecting refractory tile helper. Menstrual History Last Menstrual Date Menses Monthly On Bcp Conception Prior Menses Frequency Hcg Plus Date Menarche Onset Age Delivery Information Delivery Date Delivery Type Labor Anesthesia Weeks Gestation Incision Type Labor Labor Length Hrs Delivered By Post Complications Tubal Sterilization Discharge Date Comments Discharge Information Feeding Method Contraceptive Method Maternal HG B and HCT Levels
--- OUTSIDE RECORDS SUMMARY | 2024-12-19 16:18 | XMS_ITS | Clinical Summary ---
Author Organization [email or web address] Address [address] [place] [address] Care Team Providers Care It Senior Software Engineer Java Name Role Phone Tino Herzog MD Primary Care Provider [phone] Clara Rios CAR ELECTRONICS INSTALLER-CUSTOMER SERVICE ASSOCIATE Unavailable [phone] Carmen Medina CAR ELECTRONICS INSTALLER-CUSTOMER SERVICE ASSOCIATE Unavailable [phone] Source Comments [facility] [email or web address],non-owned Affiliates and Associated Physician Practices is amultiple site organization consisting of ambulatory clinics and hospital sitesin [place], [place] and [place]. This disclosure is being madepursuant to the Care Everywhere program and may not contain all information available regarding this patient. 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 [place] [address] Nurse Practitioner Nurse Practitioner 04/20/23 Carmen Medina, CAR ELECTRONICS INSTALLER-CUSTOMER SERVICE ASSOCIATE [address] [place] [address] Nurse Practitioner Family Medicine 06/20/23
[2024-12-19 16:21] VITALS: BP 129/90; PULSE 123; RESP 18; TEMP 36.7; O2SAT 98
--- NOTE | 2024-12-19 16:21 | ED_ITS ---
HPI - Female Genitourinary General Chief complaint: Vaginal Bleeding Stated complaint: miscarriage, 6 weeks? Time Seen by Provider: 12/19/24 16:20 History of Present Illness HPI Narrative: Patient is a 29-year-old female who presents to the ER with concerns of vaginal bleeding. She reports she is approximately 6 weeks and it was confirmed last Sunday that patient was having a miscarriage. Patient reports she has had intermittent spotting over the last week but today she started passing large clots. She reports this is her 2nd . Patient endorses significant abdominal cramping. She reports her last menstrual period was October 02, 2024. Patient denies any relevant medical history pertinent to this ER visit. Related Data Home Medications ?Medication ?Instructions ?Recorded ?Confirmed ?Last Taken ?Type vits no.126-ferrous fum 1 tablet PO DAILY 05/05/24 11/24/24 1 Day Ago History 28 mg iron-folic acid 800 mcg ~06/05/24 tablet (Classic ) Allergies Allergy/AdvReac Type Severity Reaction Status Date / Time No Known Allergies Allergy Verified 11/24/24 09:08 Review of Systems 2 Review of Systems: All systems reviewed & are unremarkable except as noted in HPI and below PMFSH Past Medical History Medical History Abnormal Pap smear of cervix Thyroid disease IBS (irritable bowel syndrome) Anxiety Anemia Allergies Family History Family History Father Diabetes mellitus Asthma Grandparent Diabetes mellitus Social History Social History Smoking status: Never smoker Alcohol intake: never Substance use: never Substance use type: marijuana Do You Feel Safe in your Home?: Yes Lack of Transportation: No Lack of Food: Never True Current Housing: I Have Housing Concerned About Future Housing: No Difficulty Paying Gas/Electric Bills: No Difficulty Paying for Meds: No Currently Unemployed: No Education: High School Diploma/GED Difficulty w/ Childcare or Family Care: No Living arrangements: with family Occupation/Education: occupation Gender identity (if verbalized by the patient): Female Sexual Orientation (if Verbalized by the Patient): Bisexual Spiritual care concerns: No Exam 2 Narrative: GENERAL: Well appearing, well-nourished, non-toxic, in no acute distress. HEAD: Normocephalic, atraumatic. NECK: Supple. No adenopathy, no masses. RESPIRATORY: Airway patent, respirations nonlabored. Clear to auscultation bilaterally, no rales, rhonchi, wheezing. CARDIOVASCULAR: Regular rate and rhythm without murmurs, rubs, or gallops. Peripheral pulses 2+ and equal bilaterally. ABDOMINAL: Soft, tender lower quadrants, nondistended, no hepatosplenomegaly. Normoactive BS. MUSCULOSKELETAL: Moves all extremities. Strength/ROM intact without gross deformities. SKIN: Warm, dry, normal color. No rashes. NEURO: A&O X3. Speech clear. Cranial nerves II-XII intact. No ataxic movements. PSYCHIATRIC: Appropriate mood and affect. Normal interaction. Course Vital Signs Vital signs: Vital Signs Temperature 36.7 C 12/19/24 16:21 Pulse Rate 123 H 12/19/24 16:21 Respiratory Rate 18 12/19/24 16:21 Blood Pressure 129/90 12/19/24 16:21 Pulse Oximetry 98 12/19/24 16:21 Oxygen Delivery Room Air 12/19/24 16:21 Temperature 36.7 C 12/19/24 16:21 Pulse Rate 91 12/19/24 16:56 Respiratory Rate 16 12/19/24 16:56 Blood Pressure 131/73 12/19/24 16:56 Pulse Oximetry 100 12/19/24 16:56 Oxygen Delivery Room Air 12/19/24 16:21 MDM - Female Genitourinary MDM Narrative Medical decision making narrative: Patient is a 29-year-old female who presents to the ER with concerns of vaginal bleeding. She reports she is approximately 6 weeks and it was confirmed last Sunday that patient was having a miscarriage. Patient reports she has had intermittent spotting over the last week but today she started passing large clots. She reports this is her 2nd . Patient endorses significant abdominal cramping. She reports her last menstrual period was October 02, 2024. Patient denies any relevant medical history pertinent to this ER visit. Labs Ordered: CBC, CMP, PTT, INR, immune globulin, type and screen, UA Imaging Ordered: Pelvic ultrasound Medications Ordered: Toradol 15mg IV Results: Pt's US indicates No gestational sac detected in this transabdominal pelvic ultrasound. The endometrial stripe measures 13 mm, without significant vascular flow, which most likely represents endometrial tissue and/or blood clot. Retained products considered less likely but not excluded. Recommend continued clinical/laboratory and sonographic follow-up. Bilateral ovaries not confidently visualized. No adnexal mass is detected. Diagnosis: active miscarriage Consults: OBGYN (outpatient), appointment already set up for Sunday with pt's OBGYN Patient Education/Shared MDM: Results of lab work and imaging shared with patient. Patient strongly advised to maintain hydration status upon discharge and follow-up with her OBGYN, as planned. She endorses intermittent nausea, but reports she has antinausea medication already prescribed at home. Pt will be discharged home with a prescription for Ibuprofen 800mg PO. Strict return precautions provided. Patient verbalized understanding and is in agreement with plan. Vital signs stable at time of discharge. All questions answered. Differential Diagnosis Differential diagnosis: Likely urinary tract infection and other (threatened miscarriage, vaginal bleeding, retained products of conception) Lab Data Attestation: I reviewed the patient's lab results. 12/19/24 16:53 12/19/24 16:53 Labs: Lab Results 12/19/24 12/19/24 12/19/24 Range/Units 16:39 16:53 16:58 WBC 7.2 (4.5-10.0) K/mm3 RBC 4.11 L (4.2-5.4) M/mm3 Hgb 11.7 L (12.0-15.0) g/dL Hct 36.4 L (37.0-47.0) % MCV 88.6 (80-100) fl MCH 28.5 (26-34) pg MCHC 32.1 (32-36) g/dl RDW 13.1 (11.5-14.5) % Plt Count 290 (150-375) k/mm3 MPV 9.2 (7.4-10.4) fl Immature Gran % (Auto) 0.4 (0-0.5) % Neut % (Auto) 61.1 (45.5-73.1) % Lymph % (Auto) 26.9 (18.3-44.2) % Rolette % (Auto) 7.2 (2.6-8.5) % Eos % (Auto) 4.0 (0-4.4) % Baso % (Auto) 0.4 (0.2-1.2) % Lymph # (Auto) 1.94 (0.9-3.2) K/mm3 Rolette # (Auto) 0.5 (0.1-0.6) K/mm3 Eos # (Auto) 0.3 (0-0.3) K/mm3 Baso # (Auto) 0.0 (0.0-0.1) K/mm3 Abs Immat Gran (auto) 0.03 (0.00-0.031) K/mm3 Absolute Neuts (auto) 4.4 (1.3-6.7) K/mm3 Absolute Nucleated RBC 0.000 (0.0-0.012) K/mm3 Nucleated RBC % 0.0 (0.0-0.2) % PT 13.3 (11.1-14.7) Seconds INR 1.0 APTT 28.8 (22.3-36.8) Seconds Sodium 137 (137-145) mmol/L Potassium 4.0 (3.4-5.0) mmol/L Chloride 105 (98-107) mmol/L Carbon Dioxide 23 (22-30) mmol/L Anion Gap 9 (4-12) mmol/L BUN 9 (7-17) mg/dL Creatinine 0.55 L (0.7-1.0) mg/dL Estim Creat Clear Calc 141 ml/min Estimated GFR > 60 (59 - ) Glucose 100 (65-110) mg/dL Calcium 9.6 (8.4-10.2) mg/dL Total Bilirubin 0.3 (0.2-1.3) mg/dL AST 27 (14-36) U/L ALT 26 (6-35) U/L Alkaline Phosphatase 91 (38-126) U/L Total Protein 7.5 (6.3-8.2) g/dL Albumin 4.3 (3.5-5.1) g/dL Beta HCG, Quant 3814.90 mIU/ML Urine Color Red H (Yellow) Urine Appearance Turbid H (Clear) Urine pH 6.5 (5.0-9.0) Ur Specific Mobile 1.030 (1.001-1.035) Urine Protein 4+ H (Negative) mg/dL Urine Glucose (UA) Negative (Negative) mg/dL Urine Ketones Negative (Negative) mg/dL Ur Blood (Man) 3+ H (Negative) Urine Nitrate Negative (Negative) Urine Bilirubin Negative (Negative) Urine Urobilinogen 0.2 (<2.0) mg/dL Leukocyte Esterase Rfl Negative (Negative) TALHA/UL Urine RBC >100 H (0-2) /hpf Urine WBC 0-5 (0-3) /hpf POC Urine HCG, Qual Positive (Negative) Blood Type A Positive Antibody Screen Negative Screen TNP Baby's Blood Type TNP Baby's MONISHA TNP Doses of RhIg Required 0 Imaging Data Attestation: I personally reviewed and interpreted this imaging study as follows: Radiologist's impression: Impressions Ultrasound 12/19/24 17:55 IMPRESSION: No gestational sac detected in this transabdominal pelvic ultrasound. The endometrial stripe measures 13 mm, without significant vascular flow, which most likely represents endometrial tissue and/or blood clot. Retained products considered less likely but not excluded. Recommend continued clinical/laboratory and sonographic follow-up. Bilateral ovaries not confidently visualized. No adnexal mass is detected. Discharge Plan Discharge Clinical Impression: Vaginal bleeding, Incomplete Patient Disposition: Home Condition: Stable Instructions: Antibiotic Form, Miscarriage (ED) Additional Instructions: Please return to the ER with any worsening symptoms. Follow-up with your OBGYN on Sunday, as previously planned. Take all medications as prescribed. You may use Tylenol and ibuprofen for pain control. Please remember to stay hydrated. Patient Language: Syriac Prescriptions: New ibuprofen 800 mg tablet 800 mg PO TID PRN (Reason: pain) Qty: 60 0RF No Action sertraline 50 mg tablet 50 mg PO DAILY Qty: 90 3RF Classic 28 mg iron- 800 mcg tablet 1 tablet PO DAILY Follow-up/Referrals: PHYSICIAN,LIME TRIMMER [Primary Care Provider] - Dario Li MD [Physician] - (OBGYN) Time of Disposition: 18:36
[2024-12-19 16:56] VITALS: BP 131/73; PULSE 91; RESP 16; O2SAT 100
[2024-12-19 16:59] LABS: Basophils Percent Auto 0.4 % (0.2-1.2); Eosinophils Absolute Auto 0.3 K/mm3 (0-0.3); Hematocrit 36.4 % (37.0-47.0); Hemoglobin 11.7 g/dL (12.0-15.0); Immature Granulocyte Absolute 0.03 K/mm3 (0.00-0.031); Immature Granulocyte Percent A 0.4 % (0-0.5); Lymphocytes Absolute Auto 1.94 K/mm3 (0.9-3.2); Lymphocytes Percent Auto 26.9 % (18.3-44.2); Mean Corpuscular HGB Conc 32.1 g/dl (32-36); Mean Corpuscular Hemoglobin 28.5 pg (26-34); Mean Corpuscular Volume 88.6 fl (80-100); Mean Platelet Volume 9.2 fl (7.4-10.4); Monocytes Absolute Auto 0.5 K/mm3 (0.1-0.6); Monocytes Percent Auto 7.2 % (2.6-8.5); Neutrophils Absolute Auto 4.4 K/mm3 (1.3-6.7); Neutrophils Percent Auto 61.1 % (45.5-73.1); Platelet Count Result 290 k/mm3 (150-375); Red Blood Count 4.11 M/mm3 (4.2-5.4); Red Cell Distribution Width 13.1 % (11.5-14.5); White Blood Count 7.2 K/mm3 (4.5-10.0)
[2024-12-19 16:59] LABS: Add Urine Microscopic? YES; Appearance Urine Turbid (Clear); Color Urine Red (Yellow); Protein Urine 4+ mg/dL (Negative); RBC Urine >100 /hpf (0-2); WBC Urine 0-5 /hpf (0-3); pH Urine 6.5 (5.0-9.0)
[2024-12-19 17:00] LABS: BEDSIDEPREGUCG Positive (Negative)
[2024-12-19 17:00] LABS: Bilirubin Urine Negative (Negative); Blood Urine 3+ (Negative); Glucose Urine UA Negative (Negative); Ketones Urine Negative (Negative); Leukocyte Esterase Ur Negative LEU/UL (Negative); Nitrate Urine Negative (Negative); Urobilinogen Urine 0.2 mg/dL (<2.0)
[2024-12-19 17:09] LABS: Alanine Aminotransferase 26 U/L (6-35); Albumin Level 4.3 g/dL (3.5-5.1); Alkaline Phosphatase 91 U/L (38-126); Anion Gap 9 mmol/L (4-12); Aspartate Amino Transferase 27 U/L (14-36); Bilirubin,Total 0.3 mg/dL (0.2-1.3); Blood Urea Nitrogen 9 mg/dL (7-17); Calcium 9.6 mg/dL (8.4-10.2); Carbon Dioxide 23 mmol/L (22-30); Chloride 105 mmol/L (98-107); Estimated CRCL calculation 141 ml/min; Estimated Glomerular Filt Rate > 60; Glucose 100 mg/dL (65-110); Partial Thromboplastin Time 28.8 Seconds (22.3-36.8); Prothrombin Time 13.3 Seconds (11.1-14.7); Sodium 137 mmol/L (137-145); Total Protein 7.5 g/dL (6.3-8.2)
--- OUTSIDE RECORDS SUMMARY | 2024-12-19 17:21 | XMS_ITS | Clinical Summary ---
Author Organization [facility] [employer] Address [address] [place] [address] Care Team Providers Care Guest Services Lead Name Role Phone Tino Herzog MD Primary Care Provider [phone] Clara Rios [employer] SERVICE MANAGER Unavailable [phone] Carmen Medina [employer] SERVICE MANAGER Unavailable [phone] Source Comments [facility] [employer],non-owned Affiliates and Associated Physician Practices is amultiple site organization consisting of ambulatory clinics and hospital sitesin [place], [place], [place] and [place]. This disclosure is being madepursuant to the Care Everywhere program and may not contain all information available regarding this patient. 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 [place] [address] Nurse Practitioner Nurse Practitioner 04/20/23 Carmen Medina, [employer] SERVICE MANAGER [address] [place] [address] Nurse Practitioner Family Medicine 06/20/23
[2024-12-19] MEDS: KETOROLAC 15 MG/ML VIAL (*BKC) IV PUSH (18:33)
== END 2024-12-19 19:07 | disposition home or self-care (01) ==
PROVIDERS: Emergency Provider Registered Nurse
DX: O03.4 Incomplete spontaneous abortion without complication (principal); K58.9 Irritable bowel syndrome, unspecified; E07.9 Disorder of thyroid, unspecified; F41.9 Anxiety disorder, unspecified; Z86.2 Personal history of diseases of the blood and blood-forming organs and certain disorders involving the immune mechanism
CPT/HCPCS: 36415; 76801; 80053; 81001; 81025; 84702; 85025; 85461; 85610; 85730; 86850; 86900; 86901; 96374; 99284; J1885

== ENCOUNTER 2024-12-26 09:52 | Outpatient (CLI) | payer BC, SELFPAY ==
--- OUTSIDE RECORDS SUMMARY | 2024-12-26 10:01 | XMS_ITS | Data Portability ---
Author Organization [employer] , [facility] Address [address] [place] [address] Assessment No assessment recorded. Plan of Treatment Reminders Order Date Submit Date Provider Last Modified By Organization Details Last Modified Time Details Appointments None recorded. Lab abo group + rh type, blood 2023 [facility], [address] [place], [address], 4 18:44:40 glucose tolerance test, post-50G, 1-hour 2023 024 [employer], [address] [place], [address], 4 10:59:57 CBC w/ auto diff 2023 024 [employer], [address] [place], [address], 4 11:00:30 obstetric screen, serum or blood 2023 024 [employer], [address] [place], [address], 4 11:31:28 TSH, serum or plasma 2023 024 [employer] [facility], [address] [place], [address], 4 13:35:09 Referral None recorded. Procedures None recorded. Surgeries None recorded. Imaging US, obstetric, follow-up 2023 024 [email or web address] Not available 17:23:53 US, breast, unilateral - pt is , is having pain. 2023 [id number] [facility], [address] [facility], [address], [address], 15:40:11 US, obstetric, follow-up 2023 024 PIERCE Not available 17:40:35 US, obstetric, limited 2023 024 [place] [address] Not available 17:13:53 Medication Orders None recorded. Patient TargetsNo targets recorded. Patient Instructions Encounter Date Encounter Id Patient Instructions Last Modified By Organization Details Last Modified Time 03/28/2024 [id number] learning about screening for gestational diabetes [email or web address] [...] NUMBE R: 866.6 97.83 78 Not Available [employer] [facility] [id number], [place], [address], 03/01/2024 13:35:09 03/31/20 24 04/01/2024 (50G) 1HR - GLUCO SE MARLON ANCE TEST, GESTA DRAGAN PEREZ N glucose (50g) 1 hour 103 mg/dL <135 normal Not Available [employer] [address], [address], 04/01/2024 10:59:57 03/31/20 24 04/01/2024 CBC (INCL UDES DIFF/ PLT) WBC 9.3 thous and/u L 4.0 - 9.8 normal Not Available [address], [address], 04/01/2024 11:00:29 03/31/20 24 04/01/2024 CBC (INCL UDES DIFF/ PLT) RBC 3.7 mary on/uL 3.9 - 4.9 low Not Available [address], [address], 04/01/2024 11:00:29 03/31/20 24 04/01/2024 CBC (INCL UDES DIFF/ PLT) hemoglobin 11.2 g/dL 11.8 - 14.8 low Not Available [address], [address], 04/01/2024 11:00:29 03/31/20 24 04/01/2024 CBC (INCL UDES DIFF/ PLT) hematocrit 33.7 % 35.5 - 44.0 low Not Available [address], [address], 04/01/2024 11:00:29 03/31/20 24 04/01/2024 CBC (INCL UDES DIFF/ PLT) MCV 90.6 fL 82.0 - 99.0 normal Not Available [address], [address], 04/01/2024 11:00:29 03/31/20 24 04/01/2024 CBC (INCL UDES DIFF/ PLT) MCH 30.1 pg 27.2 - 32.6 normal Not Available [address], [address], 04/01/2024 11:00:29 03/31/20 24 04/01/2024 CBC (INCL UDES DIFF/ PLT) MCHC 33.2 g/dL 31.5 - 35.5 normal Not Available [address], [address], 04/01/2024 11:00:03/31/20 24 04/01/2024 CBC (INCL UDES DIFF/ PLT) RDW-CV 12.9 % 11.5 - 14.5 normal Not Available [address], [address], 04/01/2024 11:00:29 03/31/20 24 04/01/2024 CBC (INCL UDES DIFF/ PLT) platelet 258 thous and/u L 140 - 350 normal Not Available [address], [address], 04/01/2024 11:00:29 03/31/20 24 04/01/2024 CBC (INCL UDES DIFF/ PLT) MPV 10.2 fL 9.3 - 12.4 normal Not Available [address], [address], 04/01/2024 11:00:29 03/31/20 24 04/01/2024 CBC (INCL UDES DIFF/ PLT) absolute neutrophil 7.02 thous and/u L 1.90 - 7.00 high Not Available [address], [address], 04/01/2024 11:00:29 03/31/20 24 04/01/2024 CBC (INCL UDES DIFF/ PLT) absolute lymphocyte 1.43 thous and/u L 0.70 - 4.50 normal Not Available [address], [address], 04/01/2024 11:00:29 03/31/20 24 04/01/2024 CBC (INCL UDES DIFF/ PLT) absolute monocyte 0.53 thous and/u L 0.10 - 1.30 normal Not Available [address], [address], 04/01/2024 11:00:29 03/31/20 24 04/01/2024 CBC (INCL UDES DIFF/ PLT) absolute eosinophil 0.22 thous and/u L <0.70 normal Not Available [address], [address], 04/01/2024 11:00:29 03/31/20 24 04/01/2024 CBC (INCL UDES DIFF/ PLT) absolute basophil 0.04 thous and/u L <0.20 normal Not Available [address], [address], 04/01/2024 11:00:29 03/31/20 24 04/01/2024 CBC (INCL UDES DIFF/ PLT) absolute immature granulocyte 0.06 thous and/u L <0.03 high Not Available [address], [address], 04/01/2024 11:00:29 03/31/20 24 04/01/2024 OB 28W (SYPH HIV 1/2 Ag/Ab Non-Re active non-re active normal Not Available [address], [address], 04/01/2024 11:31:28 03/31/20 24 04/01/2024 OB 28W (SYPH syphilis Ab Non-Re active non-re active normal Not Available [address], [address], 04/01/2024 11:31:28 03/01/20 24 02/29/2024 , sendy kerr w-up No observ ation record ed. [email or web address] [facility] [address], [place], [address], 03/03/2024 09:46:52 04/25/20 24 04/25/2024 US, obste tric, follo w-up No observ ation record ed. [email or web address] [facility] [address], [place], [address], 04/25/2024 11:41:39 Result Notes None recorded. Problems Name Problem SNOMED Code Status Onset Date Resolution Date Notes Provider Name and Address Organization Details Recorded Time Pregnanc y 87042214 Completed 202312/11/2024 Tabby luna, [place] - [facility] 5 12:59:30 Rubella non-immu ne 381790565 Completed MICHELLE MATOS, DO [address] [place] [address], [address], [facility] - [facility] 4 18:54:05 Measles non-immu ne 337126583 Completed MICHELLE MATOS DO [address] [place] [address], [address], [facility] - [facility] 4 18:54:13 Attentio n deficit hyperact ivity disorder 894932461 Completed MICHELLE MATOS, DO [address] [place] [address], [address], [facility] - [facility] 4 18:54:23 Depressi ve disorder 99456280 Completed no meds, counselor MICHELLE MATOS, DO [address] [place] [address], [address], [facility] - [facility] 4 18:54:58 Hypothyr oidism 58334550 Completed TSH (01/03): 2.73, check again at 28w MICHELLE MATOS, DO [address] [place] [address], [address], [facility] - [facility] 4 18:55:48 Problem Notes None recorded. Procedures Surgical History Date Name Laterality Status Provider Name and Address Organization Details Recorded Time 07/16/2020 Date of Last Pap Smear completed Emma Ahuja [place] - [facility] 12/07/2023 09:48:57 Imaging Results None recorded. Procedure Notes None recorded. Medical Equipment None Reported. Allergies Allergen ID Allergen Name Allergen Category Reaction Reaction Severity Criticality Documentation Date Start Date Code Code System Note Provider Name and Address Organization Details Recorded Time 443898 house dust allergeni c extract environme nt,medica tion Not available Not available Not available 10/22/2023 24614 9 RxNorm Ayala Rivers [facility], [place] [facility] 17:01:53 981013 cow milk allergeni c extract food,medi cation Not available Not available Not available 10/22/2023 03820 5 RxNorm [facility] [place] [facility] 17:01:53 Medications Name Sig Start Date [...] Details Last Updated DateTime 02/29/2024 34.6 kg/m2 27396.23 g 120 mm[Hg] 74 mm[Hg] Ayalaeugenia Rivers [place] [facility] 02/29/2024 15:26:15 Date Recorded Body height Provider Name an d Address Organization Details Last Updated DateTime 02/29/2024 [address] [facility] [employer] 02/29/2024 14:31:37 Date Recorded Body height Body mass index (BMI) Body weight Body temperature Systolic blood pressure Diastolic blood pressure Provider Name and Address Organization Details Last Updated DateTime 160.02 cm 35.6 kg/m2 33953.3 5 g 98.3 [degF] 118 mm[Hg] 68 mm[Hg] Cathleen Gifford [facility] 11:31:51 Date Recorded Body weight Body mass index (BMI) Body height Systolic blood pressure Diastolic blood pressure Provider Name and Address Organization Details Last Updated DateTime 04/11/2024 64480.8 4348 g 36.1 kg/m2 160.02 cm 124 mm[Hg] 80 mm[Hg] Kristina Lopezmargarette [facility] 16:46:02 Date Recorded Body weight Provider Name an d Address Organization Details Last Updated DateTime 04/18/2024 34265.52620 g Xena Sarah MD [address] [place], [address], [facility] 04/18/2024 16:05:36 Date Recorded Body height Body mass index (BMI) Systolic blood pressure Diastolic blood pressure Provider Name and Address Organization Details Last Updated DateTime 04/18/2024 160.02 cm 36 kg/m2 112 mm[Hg] 72 mm[Hg] Shaunaronit Peguero [facility] 04/18/2024 15:38:36 Date Recorded Body height Body mass index (BMI) Body weight Systolic blood pressure Diastolic blood pressure Provider Name and Address Organization Details Last Updated DateTime 04/25/2024 160.02 cm 36.4 kg/m2 13975.87 g 110 mm[Hg] 50 mm[Hg] Emery George [facility] 11:21:01 Social History Question Answer Notes LastModified by Organizat ion Details LastModified Time Tobacco Smoking Status Never Smoker Ayala luna, [facility] 10/22/2023 17:01:54 Are You Blind [...] SNOMED-CT Code Diagnosis ICD10 Code Diagnosis Note [id number] Leanna Fowler, [facility], CNM [facility] [address] [place] [address] 10/22/2023 16:40:33 10/23/2023 09:23:18 test positive 740387338 Z32.01 Discussed Genetics, care, danger signs, diet and exercise. Handouts given. RTC 2 weeks/prn Cramping pain 601892889 R52 push hydration. 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, molecular genetics 0973123 Z14.8 [id number] MICHELLE MATOS DO [facility] [address] [place] [address] 01/04/2024 09:30:25 01/04/2024 12:39:20 Gestation period, 16 weeks 29635461 Z3A.16 Additional diagnosis detail: 16 weeks gestation of Normal 7535914 2 Z34.02 Additional diagnosis detail: Encounter for haydee watts of normal first in second trimester Screening for disorder 691500156 Z36.0 Hypothyroi dism in 308022091 O99.280 E03.9 Additional diagnosis detail: Hypothyroi d in , antepartum [id number] MICHELLERENATO MATOS DO [facility] [address] [place] [address] 01/28/2024 13:57:24 01/28/2024 15:54:34 Normal 17287037 Z34.02 Additional diagnosis detail: Encounter for supervisio n of normal primigravi da in second trimester, antepartum screening for malformation 513151580 Z36.3 Additional diagnosis detail: Encounter for screening for malformati ons Gestation period, 19 weeks 01038353 Z3A.19 Additional diagnosis detail: 19 weeks gestation of [id number] Piero Christensen MD [address] [address] 02/29/2024 14:06:29 03/07/2024 16:10:14 Gestation period, 24 weeks 950659706 Z3A.24 screening 2437 40764 Z36.9 screening for malformation 244600229 Z36.3 [id number] LALO GRIGGS NP [facility] [address] [place] [address] 02/29/2024 14:28:19 03/03/2024 15:45:01 Gestation period, 24 weeks 566446546 Z3A.24 Pt is here for a YOLANDA appointmen t. She is taking vitamins. She has no complaints or questions. Reports feeling movement. Denies vaginal bleeding, abdominal cramps, N/V, contractio ns, or LOF. Denies headache, vision changes, swelling of hands or face, and epigastric pain. Discussed PTL and precaution s given. There are no identifiab le risk factors for pre-term labor. screening for malformation 025534920 Z36.3 Anatomy Complete Hypothyroi dism in 968433394 O99.280 E03.9 Levothyrox ine adjusted at 18 wks. [id number] LALO GRIGGS NP [facility] [address] [place] [address] 03/28/2024 11:08:13 03/28/2024 13:25:47 Gestation period, 28 weeks 51658547 Z3A.28 Normal 5500286 2 Z34.90 Pt is here for a YOLANDA appointmen t. She is taking vitamins. She has no complaints or questions. Reports feeling movement. Denies vaginal bleeding, abdominal cramps, N/V, contractio ns, or LOF. Denies headache, vision changes, swelling of hands or face, and epigastric pain. Discussed PTL and precaution s given. There are no identifiab le risk factors for pre-term labor. screening 2437 [address] Z36.9 Patient to RTC for labs [id number] MALU CHAVARRIA NP [facility] [address] [place] [address] 04/11/2024 16:27:20 04/17/2024 12:53:13 Normal 48702659 Z34.03 Pt is here for a YOLANDA [...] Order Given ReceivedPl anning to deliver @ [facility] since she lives in [place] GBS: will be obtained at 36 wks36 [...] - 2 wks Gestation period, 30 weeks 94920778 Z3A.30 Hypothyroidism 23009065 E03.9 Lump in up per outer quadrant of right breast 2130652591 24277 N63.11 Blood group typing 41256 003 Z01.83 [id number] Xena Sarah MD [facility] [address] [place] [address] 04/18/2024 15:28:03 07/21/2024 16:06:56 Primigravida 276081618 Z34.03 Gestation period, 31 weeks 77246590 Z3A.31 Lump in up per outer quadrant of right breast 9871219995 57725 N63.11 feels like cyst. no prior history of masses or cysts. Has u/s scheduled, but not until 05/08 [id number] Vannessa Lujan MD [facility] h [address] [place] [address] 04/25/2024 10:22:02 04/25/2024 11:40:41 Normal 03941713 Z34.03 Hypothyroidism 72858254 E03.8 Gestation period, 32 weeks 3553559 Z3A.32 Health Concerns Section Related Observation LastModified by Organization Detai ls LastModified Time None Recorded Concern Status LastModified by Organization Details LastModified Time None Recorded Advance Directives Directive None Recorded Payers Insurance Date Sequence Insurance Name Policy Number Policy Pierre Covered Member ID Pierre Member ID Guarantor Name 03/29/2024 1 [facility] [id number] Aidee Jacobs [id number] Aidee Jacobs 03/29/2024 2 [employer] [place] [id number] Aidee Jacobs [id number] Aidee Jacobs Notes Date Note Type Note Provider Name and Address Organization Details Recorded Time 02/29/2024 text/html Patient is here today for a routine OB visit. She is currently at 24.3 weeks gestation. vitamins: yes She has felt movement.She denies any complaints of the presence of vaginal bleed, leaking fluid, abdominal cramps, nausea, vomiting, headache or visual disturbances. LALO GRIGGS NP [address] [place], [address], [facility] [employer] 02/29/2024 17:41:27 03/28/2024 text/html Patient is here today for a routine OB visit. She is currently at 28.3 weeks gestation. vitamins: yes She has felt movement.She denies any complaints of the presence of vaginal bleed, leaking fluid, abdominal cramps, nausea, vomiting, headache or visual disturbances. She will not have her gtt today. LALO GRIGGS NP [address] [place], [address], [facility] [employer] 03/28/2024 12:50:06 04/11/2024 text/html Pt is [...] also c/o Rib pain. MALU CHAVARRIA NP [address] [place] [address], [address], [facility] [employer] 04/17/2024 07:25:18 04/18/2024 text/html Aidee is a 29 yr old who presents for a recheck of a right breast mass.She is 31 wks . At her last visit, she reported that her right breast was painful.Dr Christensen saw the pt with AIRPLANE DISPATCH CLERK Malu Chavarria and palpated the mass, plans are for setting up ultrasound and referral to [facility]. Xena Sarah MD [address] [place] [address], [address], [facility] [employer] 07/20/2024 22:11:14 04/25/2024 text/html Patient is here today for a routine OB visit. She is currently at 32.3 weeks gestation. vitamins: yes She has felt movement. She denies any complaints of the presence of vaginal bleed, leaking fluid, abdominal cramps, nausea, vomiting, headache or visual disturbances. Pt had her growth done today. Pt had been having belly button pain. Vannessa Lujan MD [address] [place] [address], [address], [facility] [employer] 04/25/2024 17:24:55 OBGyn Episode Ob Episode Information Episode Created Date Number of Fetuses Patient Bloodtype Patient rh Status Prepregnancy Weight lbs Domestic Partner Domestic Partner Phone Father Name Financial Systems Administrator Status 11/08/19 24 1 A Positive CLOSED Fetus Data First Name Last Name Admitted to NICU Weight (g) Sex Living Outcome Pediatric Complications Fetus ID Race Codes Race Delivery Type [id number] Problems Problem Notes ant plac and 20 week scan wn l Problem Name Start Date End Date Resolution Snomed Code Not e Attention deficit hyperactivity disorder 202474255 Measles non-immune 034917567 Hypothyroidism 19897872 TSH ( 01/03): 2.73, check again at 28w Rubella non-immune 078097755 Depressive disorder 35532352 no meds, counselor Robb Calculation Initial Robb [...] Weight in lbs Pre/Post Dialysis Refused Weight 185.162041315210 BP Diastolic BP Location Tested BP Systolic BP Type 68 100 Fetus Heart Rate Present A 169 Fetus Movement Comments moving [place] next [facility] NIPT/carrier screen after 10 weeks Flowsheet Date 12/07/2023 Otto Score Blood Edema Fundus Height Fundus Units Glucose Ketones Leukocytes Nitrite Labor Signs Protein Cervic Dilation Cervic Effacement Cervic Station none neg Type Weight in lbs Pre/Post Dialysis Refused With clothes 184.250143117792 BP Diastolic BP Location Tested BP Systolic BP Type 70 L arm 110 sitting Fetus Heart Rate Present A 149 Fetus Movement A Yes Comments unity/carrier screen today, will be moving next week - will try to get appt with [facility] Flowsheet Date 01/04/2024 Otto Score Blood Edema Fundus Height Fundus Units Glucose Ketones Leukocytes Nitrite Labor Signs Protein Cervic Dilation Cervic Effacement Cervic Station Type Weight in lbs Pre/Post Dialysis Refused Weight 184.290352954637 BP Diastolic BP Location Tested BP Systolic BP Type 64 108 Fetus Heart Rate Present A 145 Fetus Movement Comments no ob complaints.move here f rom [place], oriented to practiceAFP and TSH today. RTO in 4 weeks for anatomy scan Flowsheet Date 01/28/2024 Otto Score Blood Edema Fundus Height Fundus Units Glucose Ketones Leukocytes Nitrite Labor Signs Protein Cervic Dilation Cervic Effacement Cervic Station Type Weight in lbs Pre/Post Dialysis Refused Weight 186.784172814126 BP Diastolic BP Location Tested BP Systolic [...] Weight in lbs Pre/Post Dialysis Refused Weight 195.232117472165 BP Diastolic BP Location Tested BP Systolic [...] in lbs Pre/Post Dialysis Refused With clothes 200.807008862771 BP Diastolic BP Location Tested BP Systolic [...] in lbs Pre/Post Dialysis Refused With clothes 204.552561270355 BP Diastolic BP Location Tested BP Systolic [...] complaints. US is recommended & referral to [facility]. Need to draw a T&S on her at next visit. RTC - 1wk to check on her breast. Flowsheet Date 04/18/2024 Otto Score Blood Edema Fundus Height Fundus Units Glucose Ketones Leukocytes Nitrite Labor Signs Protein Cervic Dilation Cervic Effacement Cervic Station none 31 cm Type Weight in lbs Pre/Post Dialysis Refused 203.26971638407 BP Diastolic BP Location Tested BP Systolic BP Type 72 112 Fetus Heart Rate Present A 130 Fetus Movement Comments palpable right upper outer b reast mass, about 2 cm. Got appt for [facility] on May 08. Exam most c/w breast cyst Flowsheet Date 04/25/2024 Otto Score Blood Edema Fundus Height Fundus Units Glucose Ketones Leukocytes Nitrite Labor Signs Protein Cervic Dilation Cervic Effacement Cervic Station none none none neg Type Weight in lbs Pre/Post Dialysis Refused Stated 205.229890541404 BP Diastolic BP Location Tested BP Systolic BP Type 50 110 sitting Fetus Heart Rate Present A 141 Fetus Movement A Yes Comments Patient doing well. C/O pleitez y button pain, otherwise doing well. She states she is considering delivery at [facility]. Discussed that we are not on staff there. Recommended [facility] as alternative. u/s today for EFW AGA. Recommended tdap vaccine. Discussed selecting clinical faculty. Menstrual History Last Menstrual Date Menses Monthly On Bcp Conception Prior Menses Frequency Hcg Plus Date Menarche Onset Age Delivery Information Delivery Date Delivery Type Labor Anesthesia Weeks Gestation Incision Type Labor Labor Length Hrs Delivered By Post Complications Tubal Sterilization Discharge Date Comments Discharge Information Feeding Method Contraceptive Method Maternal HG B and HCT Levels
--- OUTSIDE RECORDS SUMMARY | 2024-12-26 10:01 | XMS_ITS | Clinical Summary ---
Author Organization [facility] [employer] Address [address] [facility] [place] [address] Care Team Providers Care Satellite Tv Installer Name Role Phone Tino Herzog MD Primary Care Provider [phone] Clara Rios IP LITIGATION ASSOCIATE-CHOPPER FEEDER Unavailable [phone] Carmen Medina IP LITIGATION ASSOCIATE-CHOPPER FEEDER Unavailable [phone] Source Comments [facility] [employer],non-owned Affiliates and Associated Physician Practices is amultiple site organization consisting of ambulatory clinics and hospital sitesin [place], [place], [place] and [place]. This disclosure is being madepursuant to the Care Everywhere program and may not contain all information available regarding this patient. 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 Gender Identity Female 05/01/2023 6:03 PM CDT [...] Health Maintenance Due Date Last Done Comments HIV SCREENING 2011 HEPATITIS C SCREENING 03/29/2014 PAP SMEAR 2017 DTAP/TDAP/TD VACCINES (6 - Td or Tdap) [...] Last Indicated MRSA 01/17/2011 01/17/2011 Insurance [facility] * Guarantor: Miki Youngblood Account Type Relation to Patient Date of Phone Billing Address Personal/Family Self [address] [place] [id number] [facility] * Guarantor: MIKI YOUNGBLOOD L Account Type Relation to Patient Date of Phone Billing Address Personal/Family 1995 [address] [place] [address] Care Teams Satellite Tv Installer Relationship Specialty Start Date End Date Tino Herzog MD PCP - General Family Medicine 04/20/23 Clara Rios, IP LITIGATION ASSOCIATE-CHOPPER FEEDER [address] [place] [address] Nurse Practitioner Nurse Practitioner 04/20/23 Carmen Medina, IP LITIGATION ASSOCIATE-CHOPPER FEEDER [address] [place] [address] Nurse Practitioner Family Medicine 06/20/23
[2024-12-26 10:56] LABS: Beta HCG Quantitative 105.27 mIU/ML
== END 2024-12-26 09:53 | disposition home or self-care (01) ==
LOC: ANHLAB 09:53
PROVIDERS: Visit Provider Student in an Organized Health Care Education/Training Program
DX: O03.4 Incomplete spontaneous abortion without complication (principal); Z3A.00 Weeks of gestation of pregnancy not specified
CPT/HCPCS: 36415; 84702

== ENCOUNTER 2025-01-09 11:22 | Outpatient (CLI) | payer BC, SELFPAY ==
[2025-01-09 12:51] LABS: Beta HCG Quantitative 3.03 mIU/ML
== END 2025-01-09 11:23 | disposition home or self-care (01) ==
LOC: ANHLAB 11:24
PROVIDERS: PCP Student in an Organized Health Care Education/Training Program; Visit Provider Student in an Organized Health Care Education/Training Program
DX: O20.0 Threatened abortion (principal); Z3A.00 Weeks of gestation of pregnancy not specified
CPT/HCPCS: 36415; 84702